=== PATIENT | male | born 1935 | race African-American/Black ===

== ENCOUNTER 2018-02-26 11:21 | Inpatient (IN) | payer MEDICARE ==
[2018-02-26 12:21] LABS: #Lymphocytes 0.6 thou/uL (1.20-3.40); #Monocytes 0.4 thou/uL (0.11-0.59); %Eosinophils 0.6 % (0.0-10.0); %Lymphocytes 9.4 % (21.0-51.0); %Monocytes 5.9 % (0.0-10.0); %Neutrophils 84.1 % (42.0-75.0); Hemoglobin 7.6 g/dL (14.0-18.0); Mean Corpuscular HGB CONC 32.7 g/dL (32.0-36.0); Mean Corpuscular Hemoglobin 27.8 pg (27.0-31.0); Mean Corpuscular Volume 85.2 fl (80.0-94.0); Mean Platelet Volume 6.7 fL (7.4-10.4); Platelet Count 286 thou/uL (130-400); RBC Distribution Width 14.2 % (11.5-14.5); Red Blood Cell (RBC) Count 2.72 mill/uL (4.70-6.10); White Blood Cell (WBC) Count 5.9 thou/uL (4.8-10.8)
[2018-02-26 12:44] LABS: ALT (SGPT) Less than 7 U/L (8-55); AST (SGOT) 11 U/L (5-34); Albumin 4.5 g/dL (3.4-4.8); Alkaline Phosphatase 110 U/L (40-150); Anion Gap 17 mmol/L (10-20); BUN (Urea Nitrogen) 53 mg/dL (8.4-25.7); Bilirubin, Total 0.5 mg/dL (0.2-1.2); CK (CPK) 120 U/L (30-200); Calc. Creatinine Clearance 0 mL/min (70-130); Calcium 9.6 mg/dL (7.8-10.44); Carbon Dioxide 13 mmol/L (23-31); Chloride 108 mmol/L (98-107); Estimated GFR-MDRD 11; Globulin 3.8 g/dL (2.4-3.5); Glucose 96 mg/dL (83-110); Potassium 4.3 mmol/L (3.5-5.1); Protein, Total 8.3 g/dL (5.8-8.1); Sodium 134 mmol/L (136-145)
[2018-02-26 12:49] LABS: CKMB 1.8 ng/mL (0-6.6); Troponin I 0.044 ng/mL (< 0.028)
--- NOTE | 2018-02-26 13:20 | RAD ---
CHEST 1 VIEW: Date: 02/26/18 HISTORY: Weight loss. COMPARISON: Radiograph from 2015. 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 This is not significantly worsened. Heart size upper limits of normal. No focal air space consolidation, pneumothorax, or effusion. Sever e degenerative changes of the shoulder joints with remodeling of the glenohumeral joints. Undersurfac e remodeling of the acromion indicating rotator cuff arthropathy. IMPRESSION: Similar exam since 2015. 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 POS: [facility]
[2018-02-26 15:52] LABS: Troponin I 0.047 ng/mL (< 0.028)
[2018-02-26 18:34] LABS: Troponin I 0.044 ng/mL (< 0.028)
[2018-02-26] MEDS ORDERED: hydrALAZINE 25 MG TAB PO SCH (21:45)
[2018-02-26] MEDS ORDERED: NIFEdipine XL 90 MG TAB PO SCH (21:45)
[2018-02-26] MEDS ORDERED: Sodium Chloride 0.9% 1,000 ML IV SCH (22:45)
[2018-02-27] MEDS: hydrALAZINE 20 MG/ML VIAL SLOW IVP PRN (01:11)
[2018-02-27] MEDS ORDERED: hydrALAZINE 20 MG/ML VIAL SLOW IVP SCH (04:15)
[2018-02-27 04:44] LABS: Creatinine, Urine 77.13 mg/dL (63-166)
[2018-02-27 04:56] LABS: Bilirubin Negative (Negative); Blood, Urine Negative (Negative); Clarity CLEAR (Clear); Glucose, Urine (Dipstick) Negative (Negative); Leukocyte Trace (Negative); Nitrite Negative (Negative); Protein, Urine (Dipstick) 100 mg/dL (Neg-Trace); Specific Gravity, Urine 1.009 (1.002-1.036); pH, Urine 7.5 (5.0-9.0)
[2018-02-27 04:57] LABS: Anion Gap 15 mmol/L (10-20); BUN (Urea Nitrogen) 55 mg/dL (8.4-25.7); Calc. Creatinine Clearance 8 mL/min (70-130); Calcium 9.1 mg/dL (7.8-10.44); Carbon Dioxide 13 mmol/L (23-31); Chloride 111 mmol/L (98-107); Estimated GFR-MDRD 12; Glucose 77 mg/dL (83-110); Iron 38 ug/dL (65-175); Iron Binding Capacity, Total 176 mcg/dL (261-462); Potassium 4.7 mmol/L (3.5-5.1); Sodium 134 mmol/L (136-145)
[2018-02-27 04:58] LABS: Bacteria/HPF None Seen HPF (None Seen); Hyaline Casts/LPF 0-3 HYALINE CAST LPF (0-3 Hyaline); RBC/HPF 0-3 HPF (0-3); Squamous Epithelial None Seen HPF (0-3)
[2018-02-27 05:18] LABS: #Eosinphils 0.2 thou/uL (0.0-0.7); #Lymphocytes 0.7 thou/uL (1.20-3.40); #Monocytes 0.5 thou/uL (0.11-0.59); #Neutrophils 3.6 thou/uL (1.40-6.50); %Basophils 0.3 % (0.0-1.0); %Eosinophils 3.2 % (0.0-10.0); %Lymphocytes 14.2 % (21.0-51.0); %Monocytes 9.7 % (0.0-10.0); %Neutrophils 72.7 % (42.0-75.0); Hemoglobin 7.1 g/dL (14.0-18.0); Mean Corpuscular HGB CONC 33.2 g/dL (32.0-36.0); Mean Corpuscular Hemoglobin 28.3 pg (27.0-31.0); Mean Corpuscular Volume 85.2 fl (80.0-94.0); Mean Platelet Volume 7.5 fL (7.4-10.4); Platelet Count 195 thou/uL (130-400); RBC Distribution Width 14.1 % (11.5-14.5); Red Blood Cell (RBC) Count 2.52 mill/uL (4.70-6.10)
[2018-02-27] MEDS ORDERED: GoLYTELY 4,000 ml Bottle PO SCH (06:00)
--- NOTE | 2018-02-27 06:25 | HP ---
DATE OF ADMISSION: 02/26/2018 REASON FOR ADMISSION AND CHIEF COMPLAINT: Severe anorexia and weight loss and anemia and worsening r enal failure. HISTORY OF PRESENT ILLNESS: Mr. Restrepo is an 82-year-old -Gabonese male with past medical h istory of chronic kidney disease stage 4 as well as hypertension, was seen in the office for followup . The patient was found to be very anemic and also has lost lot of weight in the last 6 months. The patient was seen 3 months ago with weight loss, anemia, and renal failure. The patient was referred to GI and Nephrology, but the patient did not go at that time and he did not wanted any workup done. 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 The patient lost more weight in the last 3 months again. He states he does not have an appetite and he has been losing weight steadily for the last 6 months. He lost significant a mount of weight around 30-40 pounds. The patient feeling weak and dizzy, but no chest pain, no short ness of breath, no headache, no nausea or vomiting. So, the patient was advised to come to the [facility]. In the ER, the patient was evaluated and found to be anemic with renal failure and severe weigh t loss. He is being admitted for further evaluation and management. PAST MEDICAL HISTORY: 1. Hypertension. 2. Chronic anemia. 3. Chronic kidney disease, stage 4. 4. History of gastric ulcers. 5. History of rectal bleeding. 6. History of colon diverticular. 7. History of degenerative joint disease. PAST SURGICAL HISTORY: Nothing significant. CURRENT MEDICATIONS: The patient is on nifedipine 90 mg daily, hydralazine 100 mg t.i.d., clonidine 0.2 mg b.i.d. ALLERGIES: No known drug allergies. FAMILY HISTORY: Nothing of interest. SOCIAL HISTORY: The patient lives alone. No history of smoking. No history of alcohol intake. REVIEW OF SYSTEMS: Cardiovascular: No chest pain, no shortness of breath. Respiratory: No cough, fever. Gastrointestinal: Has anorexia and weight loss. No abdominal pain. Central nervous system: No headache. Feels dizzy. PHYSICAL EXAMINATION: GENERAL: The patient is alert, awake, oriented x3. VITAL SIGNS: Temperature 98, pulse 57, respirations 20, blood pressure 160/80. HEENT: Head is normocephalic, atraumatic. Pupils equal and reactive to light. Nasopharynx is pale and dry. Hard and soft palate, no lesions seen. SKIN: Skin turgor decreased. NECK: Supple. No JVD. LUNGS: Breath sounds diminished bilaterally. Percussion not dull bilaterally. No rales, no rhonchi . HEART: S1, S2 regular. ABDOMEN: Soft, no distention, no tenderness. Normal bowel sounds present. RECTAL: Deferred. CENTRAL NERVOUS SYSTEM: The patient is alert, awake, oriented x3. Motor system power 4/5 in all ext remities. Deep tendon reflexes 2+ bilaterally. Plantars downgoing. Sensory intact. LABORATORY DATA AND X-RAY FINDINGS: CBC shows WBC 5.9, hemoglobin 7.6, hematocrit 22, platelets 286. Metabolic panel: Sodium 134, potassium 4.8, chloride 108, CO2 of 13, BUN 53, creatinine 6, glucose 96, CK-MB 1.8, troponin I 0.044. BNP was 433. EKG shows normal sinus rhythm, no acute ST-T changes seen. Chest x-ray: Lungs clear. There is marked ectasia versus aneurysm dilatation of the transve rse and proximal descending thoracic aorta. ASSESSMENT: 1. Severe anemia, symptomatic. 2. Anorexia and weight loss. 3. Severe protein calorie malnutrition. 4. Chronic kidney disease, stage 4. 5. Hypertension, uncontrolled. 6. Cachexia and weakness. PLAN: 1. Vital signs q.4 hours. 2. Activity: As tolerated. 3. Allergies: NKDA. 4. IV fluids: Normal saline at 75 mL per hour. 5. Continue home medication. 6. Diet: Renal, 7. CBC and base met in the morning. 8. GI consult. 9. Nephrology consult.
[2018-02-27] MEDS: Sodium Chloride 0.9% 1,000 ML IV SCH ×2 (06:29→22:43)
--- NOTE | 2018-02-27 07:58 | CON ---
DATE OF CONSULTATION: 02/27/2018 REFERRING PHYSICIAN: Dr. Yovany Gonzalez. REASON FOR CONSULTATION: Progressive weight loss, anemia. HISTORY OF PRESENT ILLNESS: Mr. Varun Restrepo is a very fragile looking, elderly black male who w as hospitalized today with anemia and also history of progressive weight loss. The patient was seen in the room along with the patient's family. The patient is weighing 200 pounds to probably 2 years ago. The patient has been eating very poorly over the last year also. He has any losing weight prog ressively. The patient actually appears very cachectic. There is no muscle mass. He appears very c omfortable. Except for the anorexia and poor oral intake, he had really no specific GI symptoms. Th e patient denies abdominal pain, nausea, or vomiting. No history of any dysphagia or odynophagia. B owel movements are fairly regular. No history of hematochezia, no melena. Does complain of poor david etite and weight loss. He also complains of lack of energy, fatigue, and tiredness lately. He also been feeling dizzy off and on. The symptoms are very nonspecific. The patient has no history of chr onic cough, hemoptysis. No history of fever or night sweats. The patient has really no localizing s ymptoms except for the anorexia and progressive weight loss. He came to the ER and was found to have anemia. Although he is anemic, he has no history of hematochezia or melena. No hematuria, bleeding from the gums, or nose bleeds. The patient tells me he had prostate cancer in 2002 or [address] Rodriguez and underwent radiation therapy. He has subsequent followup with urologist. Th e patient has no urinary symptoms at present time. The patient has no family history of any cancer. He has no relevant history. ALLERGIES: None. SOCIAL HISTORY: Patient does not smoke or drink alcohol. MEDICAL ILLNESSES: 1. Hypertension. 2. 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 3. Prostate cancer in 2001, 2002, and has had chemoradiation therapy. SURGERIES: None. FAMILY HISTORY: Unremarkable. MEDICATIONS: List includes Clonidine, nifedipine, hydralazine. REVIEW OF SYSTEMS: A 10-point system review. Constitutional: History of poor appetite, weight loss , poor strength, and poor energy. Central Nervous System: No history of TIA. No syncope, no seizur e disorder. No chronic headache. Respiratory System: No history of chronic cough, hemoptysis, dysp riley. Cardiovascular System: No chest pain, no palpitation, no exertional dyspnea, orthopnea, or PND . Gastrointestinal: No abdominal pain, no nausea, no vomiting, no dysphagia or odynophagia. Bowel movements are fairly regular. Genitourinary: No dysuria, hematuria, or frequency of urination. Mus culoskeletal/Endocrine/hematological/neuro/psychiatry: Not relevant. PHYSICAL EXAMINATION: GENERAL: Patient appears very thin built and basically no muscle mass and he appears very cachectic. He is awake, alert, and communicative. He is in no distress. VITAL SIGNS: Temperature 97.75 and pulse is 62, blood pressure 182/95. HEENT: Conjunctivae clear. NECK: Supple. No adenitis or thyromegaly noted. CARDIOVASCULAR SYSTEM: First and second heart sounds normal. LUNGS: Clear to auscultation. ABDOMEN: Soft to palpate. Abdomen is nondistended. Abdomen is nontender. There is no organomegaly or masses. Bowel sounds normal. EXTREMITIES: No edema. LABORATORY DATA: CBC shows WBC 5900, hemoglobin 7.6, hematocrit 23.3, MCV 85.2, platelet count is 38 6,000, polymorphs 84, lymphocytes 9, monocytes 5. Serum chemistries are actually normal except for t he BUN of 53, creatinine 6.01, sodium 134, potassium 4.3, chloride 108, bicarbonate 13, glucose is 96 , calcium 9.6, bilirubin 0.5. AST 11, ALT 7, alkaline phosphatase 110. CK 120, MB 1.8, troponin 0.0 44, total protein is 8.3, albumin 4.3, globulin 3.8. CLINICAL IMPRESSION: 1. An 82-year-old -[place] male with anorexia and progressive weight loss over the last year or so. He is also anemic. The anemia is back to normocytic. He has no localizing symptoms. The p atient really has no other abdominal pain, nausea, vomiting, hematochezia, or melena. I am really no t sure of the history and GI pathology also for weight loss or some other pathology. 2. Hypertension. 3. Chronic kidney disease. 4. History of prostate cancer, status post radiation therapy. PLAN: 1. Follow up H&H. 2. Transfuse p.r.n. 3. Potassium is normal at 4.3. He is acidotic from the renal failure. I had a long talk with the p atchauncey and patient's family. I explained to her about EGD needed for anorexia, weight loss, and anemi a. Also explained the bowel prep in detail. He agrees to have that as necessary and will plan for t he bowel prep tomorrow morning and hopefully the EGD can be done by tomorrow afternoon. If fails to show any signs of pathology, we will consider CAT scan. However, the CAT scan can be done with contr ast because of chronic renal failure.
[2018-02-27] MEDS: NIFEdipine XL 90 MG TAB PO SCH (08:20)
[2018-02-27] MEDS: hydrALAZINE 25 MG TAB PO SCH ×3 (08:21→22:42)
--- NOTE | 2018-02-27 08:59 | CON ---
DATE OF CONSULTATION: 02/27/2018. HISTORY OF PRESENT ILLNESS: Mr. Restrepo is an 82-year-old black male who was admitted for severe an orexia with weight loss. He was also found to be in acute kidney injury on top of his chronic renal failure. Of interest, this patient was seen by the Renal Service about 3 years ago for his chronic r enal failure. He has intrinsic renal problem on the initial evaluation. We are here to further evaluate the acute kidney injury. REVIEW OF SYSTEMS: Decreased appetite, decreased energy level. Positive for abdominal pain. Occasi onal nausea, no hematochezia, no melena, no hematemesis, no headache, no shortness of breath, no ches t pain. Appetite is decreased. No fever or chills, no syncopal episode, no sore throat, no diplopia , occasional joint pains. Past medical history of chronic renal failure secondary to a presumed hype rtensive nephropathy. Chronic anemia. History of gastric ulcers. PAST MEDICAL HISTORY: 1. 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 2. Chronic anemia. 3. History of gastric ulcers. 4. History of rectal bleeding 5. History of the colonic diverticulosis. 6. DJD. 7. Also a history of noncompliance. 8. Hyperlipidemia. PAST SURGICAL HISTORY: Status post upper and lower GI endoscopy. SOCIAL HISTORY: The patient lives in [place], , five children, lives alone. No history of smo akilah, no alcohol intake. Education; 2nd grade. 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 No IV drug ab use. Active life. Sedentary lifestyle. FAMILY HISTORY: No family history of ESRD. ALLERGIES: CODEINE. TRAUMA: None. IMMUNIZATIONS: Up to date. HOSPITALIZATIONS: Please see past medical history. PHYSICAL EXAMINATION: VITAL SIGNS: Blood pressure 160/90, heart rate 72, respiratory rate 16, temperature 97.9, pulse oxim etry 99%. GENERAL: Noted to be awake, alert, supine, comfortable, not in overt distress. SKIN: Decreased turgor. HEENT: He has pale conjunctivae, anicteric sclerae. NECK: No neck mass, no carotid bruits, no JVD. CHEST: No deformities. LUNGS: Clear breath sounds, no wheezing, no crackles. HEART: Normal sinus rhythm. No murmur, no gallops or rubs. ABDOMEN: Globular, soft, nontender, no masses. EXTREMITIES: No edema, no deformities. MEDICATIONS: 02/27/2018 - Hydralazine 100 mg p.o. t.i.d., Nifedipine 90 mg daily. LABORATORY: 02/27/2018 - White count 5, hemoglobin 7.1. 02/26/2018 - Hemoglobin was 7.6. 02/27/2018 - Sodium 134, potassium 4.7, chloride 111, carbon dioxide 13, BUN 55, creatinine 5.48, GFR 12 mL per minute, glucose 77, calcium 9.1, iron 38, ferritin 291. 02/26/2018 - BNP 433. Troponin I 0.044. 02/26/2018 - BUN 53, creatinine 6.01. 10/17/2014 - Creatinine 4.17. Renal ultrasound is currently pending. 02/26/2018 - Chest x-ray shows no evidence of congestive heart failure. There is marked ectasia vers us aneurysmal dilatation the ____ proximal descending thoracic aorta - relatively unchanged when comp ared back in 2014. ASSESSMENT AND PLAN: 1. Acute kidney injury - consider superimposed prerenal azotemia with a history of decreased p.o. in take and weight loss. Agree with continuing normal saline at 75 mL per hour. Slight improvement in the renal function with initiation of IV hydration. 2. Anemia. Gastroenterology consult has been done. For a planned colonoscopy. P.r.n. blood transf usion. 3. Hypertension. Resume all blood pressure meds including clonidine 0.1 mg tab b.i.d. I will start this patient on Epogen and iron supplementation. I agree with current management. We will do a renal ultrasound today.
[2018-02-27] MEDS ORDERED: Epoetin (ESRD) 20,000 UNITS/ML SC SCH (09:00)
[2018-02-27] MEDS ORDERED: Ondansetron HCl/PF 4 MG/2 ML Vial IVP SCH (10:00)
[2018-02-27] MEDS: cloNIDine 0.1 MG TAB PO SCH ×2 (10:36→22:42)
--- NOTE | 2018-02-27 11:21 | ULT ---
ULTRASOUND RENAL BILATERAL STANDARD: Date: 02/27/18 HISTORY: Renal failure. COMPARISON: Renal ultrasound dated 10/16/14. TECHNIQUE: Real-time Moore scale and color evaluation of the kidneys performed. FINDINGS: The kidneys are small and markedly echogenic. Right kidney measures 6.7 x 5.6 x 5.5 cm. Left kidney m easures 6.0 x 2.9 x 3.8 cm. Pre-void urinary bladder volume is 232 mL. There are numerous small renal cysts. IMPRESSION: Echogenic kidney consistent with medical renal disease. No evidence for obstructive uropathy. POS: [facility]
[2018-02-27] MEDS: Ferrous Sulfate 325 MG TAB PO SCH (18:48)
[2018-02-28 05:48] LABS: #Eosinphils 0.1 thou/uL (0.0-0.7); #Lymphocytes 0.9 thou/uL (1.20-3.40); #Monocytes 0.4 thou/uL (0.11-0.59); #Neutrophils 3.1 thou/uL (1.40-6.50); %Basophils 0.8 % (0.0-1.0); %Lymphocytes 19.9 % (21.0-51.0); %Neutrophils 69.3 % (42.0-75.0); Hemoglobin 6.6 g/dL (14.0-18.0); Mean Corpuscular HGB CONC 33.9 g/dL (32.0-36.0); Mean Corpuscular Hemoglobin 28.6 pg (27.0-31.0); Mean Corpuscular Volume 84.2 fl (80.0-94.0); Mean Platelet Volume 6.4 fL (7.4-10.4); Platelet Count 212 thou/uL (130-400); RBC Distribution Width 14.1 % (11.5-14.5); Red Blood Cell (RBC) Count 2.32 mill/uL (4.70-6.10); White Blood Cell (WBC) Count 4.5 thou/uL (4.8-10.8)
[2018-02-28 06:08] LABS: Anion Gap 14 mmol/L (10-20); BUN (Urea Nitrogen) 46 mg/dL (8.4-25.7); Calc. Creatinine Clearance 10 mL/min (70-130); Calcium 8.8 mg/dL (7.8-10.44); Carbon Dioxide 17 mmol/L (23-31); Chloride 109 mmol/L (98-107); Estimated GFR-MDRD 14; Glucose 60 mg/dL (83-110); Potassium 4.4 mmol/L (3.5-5.1); Sodium 136 mmol/L (136-145)
--- NOTE | 2018-02-28 07:53 | CON ---
DATE OF CONSULTATION: 02/27/2018 INDICATION FOR CONSULTATION: This is an 82-year-old patient who was admitted with failure to thrive, increasing weight loss and continued to have fatigue and weakness, anorexia, anemia with chronic kaila al insufficiency and malnutrition. He had abnormal cardiac enzymes which are indeterminate. He also had some PACs as well as some bradycardia noted on the EKG with a heart rate actually of 2.1 second pause. Heart rate was in mainly in the 50s until he had a slight pause. Otherwise he has had no sig nificant arrhythmias noted. Does have evidence of left ventricular hypertrophy. He had an echocardi ogram today which showed a normal ejection fraction with LVH. HISTORY OF PRESENT ILLNESS: This is a very unfortunate 82-year-old gentleman who has been living [facility]. Family members nearby has been noted to have recently over the last year or so increasing weight loss. His daughter says that he has lost almost 100 pounds over a year ago, but in the last 2 month s, he has lost about 30 pounds. He says that he does not feel very well. He does have some anorexia and he does not understand why he is losing weight or if there is any particular specific abdominal complaints. He has no pain. He has had no previous cardiac history. He denied any chest pain or sh ortness of breath. He does have a history of hypertension and hypercholesterolemia. Otherwise, he f rom a cardiac standpoint appears to be relatively stable. Cardiac enzymes were indeterminate at 0.04 4. BNP is only 433 which is slightly elevated as the echocardiogram does show evidence of mild diast olic dysfunction. 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 He has a history of endoscopy in the past. He has had rectal bleeding in the past and dege nerative joint disease. He has been noncompliant with followups. SOCIAL HISTORY: He has no alcohol or tobacco abuse. He has family members who are alive and well. FAMILY HISTORY: Unremarkable for any early heart disease. ALLERGIES: Possible allergy to CODEINE. MEDICATIONS: Include clonidine, Plavix, Procrit, Feosol, hydralazine and Procardia-XL 90 mg a day. REVIEW OF SYSTEMS: A 12-point review of system is unremarkable except for the weight loss. He denie d any other major symptoms except for fatigue. PHYSICAL EXAMINATION: GENERAL: Reveals an elderly, thin gentleman. VITAL SIGNS: Blood pressure 140/80, heart rate is 84 and regular with occasional ectopy. He is afeb rile, respiratory rate 16. HEENT: Shows head to be normocephalic and atraumatic. Carotid pulses are present. There were no br uits. There is no JVD. The thyroid did not appear to be enlarged. Oral mucosa was pink and moist. CHEST: Clear to auscultation without any rales, rhonchi or wheezing. CARDIOVASCULAR: Reveals a regular rate and rhythm with occasional ectopy. He has no significant mur murs, heaves, thrills, bruits or rubs. ABDOMEN: Flat, soft, and nontender. Positive bowel sounds are present. I did not palpate any gross masses. EXTREMITIES: Showed no clubbing, cyanosis or edema. Pedal pulses are very difficult to palpate. Po pliteal pulses are present. Femoral pulses are present. He has bilateral femoral bruits. NEUROLOGIC: He just appears to be fatigued, but there were no gross focal motor deficits noted. IMAGING DATA AND LABORATORY DATA: EKG shows a normal sinus rhythm with left ventricular hypertrophy with nonspecific T-wave changes. He has had a CT which showed aneurysmal dilatation of thoracic aort a from the transverse and proximal areas and cardiac enzymes are noted above. Laboratory data shows creatinine of 5.48, potassium 4.7. His hemoglobin was 7.1 with hematocrit of 21.5. Echocardiogram a s noted above shows left ventricular hypertrophy. Ejection fraction 55%-60%. He does have some thic kening of the aortic valve leaflets which may be some either old vegetations or mild calcifications o r either some gross on the aortic valve, but there were no obstructive lesions. He has mild tricuspi d valve regurgitation, mild mitral valve regurgitation and also has evidence of diastolic dysfunction with evidence of left ventricular hypertrophy also. IMPRESSION: 1. Abnormal cardiac enzymes, most likely due to his chronic renal insufficiency and perhaps demand i schemia related to the anemia. He has no acute changes at this time. He does have evidence of left ventricular hypertrophy, but no acute ST segment elevations to indicate ischemia at this time. Due t o his anemia, he is not a candidate for further workup at this time. 2. Anemia which is being followed by the GI. He will most likely undergo an endoscopy. 3. Significant weight loss over 100 pounds in a year according to the family. This also need to be evaluated. He may have some underlying malignancy. 4. Hypertension, which is under good control at this time. 5. Chronic kidney disease. She has been seen already by the senior information developer. At this time, we are happy to continue to follow the patient with you. His present medications I wozayra rocha agree with, his BNP is only slightly elevated and he appears to have diastolic dysfunction, but th is would not be unusual for this with hypertension and diastolic dysfunction with elevated BNP of 433 . Cardiac enzymes show indeterminate and most likely associated with his anemia. We would be more t moreno happy to follow with the patient with you, but no further cardiac workup is indicated at this marine e.
[2018-02-28] MEDS ORDERED: Promethazine HCl 25 MG/ML VIAL IM PRN (07:54)
[2018-02-28] MEDS ORDERED: Promethazine HCl 25 MG/ML VIAL SLOW IVP PRN (07:54)
[2018-02-28] MEDS ORDERED: Ondansetron HCl/PF 4 MG/2 ML Vial IVP PRN (07:54)
--- NOTE | 2018-02-28 09:49 | OP ---
DATE OF PROCEDURE: 02/28/2018 SURGEON: Chayito Alvarez M.D. OPERATIVE PROCEDURE: Colonoscopy. PREOPERATIVE DIAGNOSES: Severe weight loss, anemia. POSTOPERATIVE DIAGNOSES: 1. Radiation proctitis. 2. Hemorrhoids. 3. Sigmoid diverticular disease. 4. Very tortuous and redundant colon. PROCEDURE IN DETAIL: The patient was placed on his left lateral position and was given sedation by A nesthesia Department. A rectal exam was done before the scope was advanced into the rectum. No lesi on felt on rectal exam. A Pentax video colonoscope was introduced into the rectum and advanced all t he way to the cecum. The patient had a very tortuous and redundant colon. The mucosa appears normal throughout the colon. The appendiceal orifice and ileocecal valve, cecum, no problems. The ascendi ng colon, hepatic flexure, transverse colon, ascending colon, no pathology seen. The sigmoid colon s howed scattered diverticula. Rectum shows telangiectasia and also what appears to be radiation proct itis. Rectum also showed hemorrhoids.
--- NOTE | 2018-02-28 09:53 | OP ---
DATE OF PROCEDURE: 02/28/2018 SURGEON: Chayito Alvarez M.D. OPERATIVE PROCEDURE: Esophagogastroduodenoscopy PREOPERATIVE DIAGNOSES: An 82-year-old male with severe weight loss, anemia. The p atient is undergoing esophagogastroduodenoscopy. POSTOPERATIVE DIAGNOSES: 1. Small hiatus hernia. 2. Antral gastric erosion. 3. Normal duodenum. PROCEDURE IN DETAIL: The patient was placed on his left lateral position and was given sedation by A nesthesia Department. A Pentax video gastroscope under direct vision was passed down the oropharynx, past the GE junction, into the stomach and subsequently into descending duodenum. The esophageal mu cosa appeared normal. The GE junction, no pathology seen. He had a small hiatus hernia. Retroflexi on failed to show any pathology in the fundus or cardia. The gastric body, no pathology seen. The gastric antrum shows mild gastritis and some antral erosion. The incisura angularis, no pathology se en. The duodenal bulb, descending duodenum, no pathology seen. The stomach was decompressed and the scope removed. RECOMMENDATIONS: 1. Follow up H&H. 2. Transfuse p.r.n. 3. Obtain a CAT scan of the abdomen and pelvis with contrast if possible. Because of his kidney dys function a contrast study may be very difficult.
[2018-02-28] MEDS ORDERED: PROPOFOL 200 MG/20 ML VIAL ONE (11:12)
[2018-02-28] MEDS: NIFEdipine XL 90 MG TAB PO SCH (11:46)
[2018-02-28] MEDS: Ferrous Sulfate 325 MG TAB PO SCH ×2 (11:47→16:37)
[2018-02-28] MEDS: hydrALAZINE 25 MG TAB PO SCH ×3 (11:47→19:45)
[2018-02-28] MEDS: Sodium Chloride 0.9% 1,000 ML IV SCH ×2 (11:47→21:34)
[2018-02-28] MEDS: cloNIDine 0.1 MG TAB PO SCH ×2 (11:47→19:45)
--- NOTE | 2018-02-28 13:51 | PDOC.CTH ---
<Petra Quiñones - Last Filed: 02/28/18 13:49> Cardiology Progress Note - Subjective The pt seen and examined. No overnight events. No cardiac complaints. - Objective Vital Signs Temp Pulse Resp BP BP Pulse Ox 02/28/18 11:47 65 02/28/18 11:46 65 171/87 H 02/28/18 09:50 98.2 F 65 18 100 02/28/18 09:45 98.2 F 65 100 H 171/87 H 100 02/28/18 04:00 98.9 F 67 18 150/72 H 93 L Admit Weight 117 lb 5 oz Weight 125 lb 4.8 oz 02/27/18 02/28/18 03/01/18 06:59 06:59 06:59 Intake Total 761 1140 Output Total 470 500 Balance 291 640 - Physical Examination General/Neuro: alert & oriented x3 Neck: no JVD present Lungs: CTA Heart: RRR Abdomen: soft Extremities: other: (No edema) - Telemetry Telemetry Rhythm: SR 60s - Labs Result Diagrams: 02/28/18 05:03 02/28/18 05:03 Troponin/CKMB CK-MB (CK-2) 1.8 ng/mL (0-6.6) 02/26/18 12:03 Troponin I 0.044 ng/mL (< 0.028) H 02/26/18 17:47 - Assessment/Plan 1. Acute on CKD - managed by research chief engineer 2. Anemia - EGD showed negative; on Epoetin 3. HTN - start Coreg 6.25mg BID 4. Hx of gastric ulcer - EGD showed negative; MAR reviewed * Echo on 02/27/18 showed EF 55-60%, grade I diastolic HF, trace MR, mild AR, mild TR, and mild [place]. Review of Systems - Review of Systems Constitutional: reports: no symptoms reported EENTM: reports: no symptoms reported Respiratory: reports: no symptoms reported Cardiac (ROS): reports: no symptoms reported ABD/GI: reports: no symptoms reported : reports: no symptoms reported Musculoskeletal: reports: no symptoms reported Skin: reports: no symptoms reported <Sully Alvarez - Last Filed: 02/28/18 20:23> Cardiology Progress Note - Objective Vital Signs Temp Pulse Pulse Resp BP BP BP 06/13/18 19:45 182/99 H 02/28/18 19:00 98.6 F 72 18 171/91 H 02/28/18 16:40 182/99 H 02/28/18 15:30 97.9 F 53 L 53 L 17 159/92 H 159/92 H 02/28/18 15:18 65 182/99 H 02/28/18 15:15 97.8 F 58 L 18 182/99 H 02/28/18 12:00 59 L 18 152/86 H 02/28/18 11:47 65 02/28/18 11:46 65 171/87 H 02/28/18 09:50 98.2 F 65 18 02/28/18 09:45 98.2 F 65 16 171/87 H Pulse Ox 02/28/18 19:45 02/28/18 19:00 02/28/18 16:40 02/28/18 15:30 98 02/28/18 15:18 02/28/18 15:15 02/28/18 12:00 02/28/18 11:47 02/28/18 11:46 02/28/18 09:50 100 02/28/18 09:45 100 Admit Weight 117 lb 5 oz Weight 125 lb 4.8 oz 02/27/18 02/28/18 03/01/18 06:59 06:59 06:59 Intake Total 761 1140 1005 Output Total 470 500 550 Balance 291 640 455 - Labs Result Diagrams: 02/28/18 05:03 02/28/18 05:03 Troponin/CKMB CK-MB (CK-2) 1.8 ng/mL (0-6.6) 02/26/18 12:03 Troponin I 0.044 ng/mL (< 0.028) H 02/26/18 17:47 - Assessment/Plan Pt. seen and eval. I agree with the A/P by the SKIING INSTRUCTOR. The cardiac status remains stable. I will sign off. if any changes from a cardiac standpoint, please consult me again.
[2018-02-28] MEDS: Carvedilol 6.25 MG TAB PO SCH (16:40)
[2018-02-28] MEDS: hydrALAZINE 20 MG/ML VIAL SLOW IVP PRN (20:31)
[2018-02-28] MEDS ORDERED: Labetalol HCl 100 MG/20 ML VIAL SLOW IVP SCH (22:30)
[2018-03-01 05:46] LABS: #Eosinphils 0.1 thou/uL (0.0-0.7); #Lymphocytes 0.7 thou/uL (1.20-3.40); #Monocytes 0.5 thou/uL (0.11-0.59); #Neutrophils 4.1 thou/uL (1.40-6.50); %Basophils 0.2 % (0.0-1.0); %Eosinophils 1.5 % (0.0-10.0); %Lymphocytes 12.7 % (21.0-51.0); %Monocytes 9.1 % (0.0-10.0); %Neutrophils 76.5 % (42.0-75.0); Hemoglobin 9.5 g/dL (14.0-18.0); Mean Corpuscular HGB CONC 33.7 g/dL (32.0-36.0); Mean Corpuscular Hemoglobin 28.5 pg (27.0-31.0); Mean Corpuscular Volume 84.4 fl (80.0-94.0); Mean Platelet Volume 6.4 fL (7.4-10.4); Platelet Count 205 thou/uL (130-400); RBC Distribution Width 14.4 % (11.5-14.5); Red Blood Cell (RBC) Count 3.35 mill/uL (4.70-6.10); White Blood Cell (WBC) Count 5.4 thou/uL (4.8-10.8)
[2018-03-01 06:05] LABS: Anion Gap 13 mmol/L (10-20); BUN (Urea Nitrogen) 42 mg/dL (8.4-25.7); Calc. Creatinine Clearance 11 mL/min (70-130); Carbon Dioxide 18 mmol/L (23-31); Chloride 110 mmol/L (98-107); Estimated GFR-MDRD 16; Glucose 73 mg/dL (83-110); Potassium 4.4 mmol/L (3.5-5.1); Sodium 137 mmol/L (136-145)
[2018-03-01 06:17] LABS: Free T4 (Free Thyroxine) 1.19 ng/dL (0.70-1.48); Thyroid Stimulating Hormone 1.3906 uIU/mL (0.35-4.94)
[2018-03-01] MEDS: hydrALAZINE 25 MG TAB PO SCH ×3 (08:40→19:27)
[2018-03-01] MEDS: Ferrous Sulfate 325 MG TAB PO SCH ×2 (08:41→17:18)
[2018-03-01] MEDS: cloNIDine 0.1 MG TAB PO SCH ×2 (08:41→19:27)
[2018-03-01] MEDS: NIFEdipine XL 90 MG TAB PO SCH (08:41)
[2018-03-01] MEDS: Carvedilol 6.25 MG TAB PO SCH ×2 (08:41→17:18)
[2018-03-01] MEDS: Sodium Chloride 0.9% 1,000 ML IV SCH ×2 (10:40→19:28)
--- NOTE | 2018-03-01 10:46 | PRG ---
DATE OF SERVICE: 03/01/2018 SUBJECTIVE: Mr. Restrepo is an 82-year-old black male who was seen by the Renal Service for his acut e kidney injury. He had a superimposed hemodynamically mediated renal dysfunction. He was given IV volume repletion. He also underwent upper and lower GI endoscopy. Findings showed radiation proctit is, hemorrhoids, and an antral gastric erosion. This morning, he is feeling better. His creatinine is much improved. No complaints of chest pain, shortness of breath. OBJECTIVE: VITAL SIGNS: Blood pressure 155/81, heart rate 63, respiratory rate 12, temperature 98.7, pulse ox 9 8%. GENERAL: Noted to be awake, alert, comfortable, not in distress. SKIN: Adequate turgor. HEENT: He has pinkish conjunctivae, anicteric sclerae. NECK: No neck mass, no carotid bruits, no JVD. CHEST: No deformities. LUNGS: Clear breath sounds, no wheezing, no crackles. HEART: Normal sinus rhythm. No murmur, no gallops or rubs. ABDOMEN: Globular, soft, nontender. No masses. EXTREMITIES: No edema, no deformities. MEDICATIONS: 03/01/2018 - Reviewed. LABORATORY DATA: 03/01/2018 - White count 5.4, hemoglobin 9.5. Sodium 137, potassium 4.4, chloride 110, carbon dioxide 18, BUN 42, creatinine 4.43, glucose 73, calcium 9. ASSESSMENT AND PLAN: 1. Acute kidney injury on top of his chronic renal failure - superimposed prerenal azotemia, improvi ng creatinine. Creatinine of 4.4, nearing baseline. He is currently, at stage IV chronic renal fail ure, no indication for any dialytic intervention. Continue gentle volume repletion. 2. Anemia - upper and lower GI endoscopy has been done. GI is following. P.r.n. blood transfusion. He has also been started on Epogen. 3. Hypertension, stable. Continue current blood pressure meds. 4. Chronic renal failure - most likely from hypertensive nephropathy. I did advise this patient to follow up with the Renal Clinic.
[2018-03-01] MEDS: Mirtazapine 15 MG TAB PO SCH (19:27)
[2018-03-02 05:35] LABS: #Eosinphils 0.1 thou/uL (0.0-0.7); #Lymphocytes 0.8 thou/uL (1.20-3.40); #Monocytes 0.6 thou/uL (0.11-0.59); #Neutrophils 3.8 thou/uL (1.40-6.50); %Basophils 0.2 % (0.0-1.0); %Eosinophils 2.7 % (0.0-10.0); %Lymphocytes 15.2 % (21.0-51.0); %Monocytes 10.3 % (0.0-10.0); %Neutrophils 71.6 % (42.0-75.0); Hemoglobin 9.3 g/dL (14.0-18.0); Mean Corpuscular HGB CONC 33.7 g/dL (32.0-36.0); Mean Corpuscular Hemoglobin 28.8 pg (27.0-31.0); Mean Corpuscular Volume 85.3 fl (80.0-94.0); Mean Platelet Volume 6.6 fL (7.4-10.4); Platelet Count 213 thou/uL (130-400); RBC Distribution Width 14.3 % (11.5-14.5); Red Blood Cell (RBC) Count 3.24 mill/uL (4.70-6.10); White Blood Cell (WBC) Count 5.3 thou/uL (4.8-10.8)
[2018-03-02 05:49] LABS: Anion Gap 10 mmol/L (10-20); BUN (Urea Nitrogen) 42 mg/dL (8.4-25.7); Calc. Creatinine Clearance 12 mL/min (70-130); Calcium 8.7 mg/dL (7.8-10.44); Carbon Dioxide 18 mmol/L (23-31); Chloride 112 mmol/L (98-107); Estimated GFR-MDRD 17; Potassium 4.9 mmol/L (3.5-5.1); Sodium 135 mmol/L (136-145)
[2018-03-02 05:53] LABS: Glucose 57 mg/dL (83-110)
[2018-03-02] MEDS: Carvedilol 6.25 MG TAB PO SCH ×2 (08:44→16:51)
[2018-03-02] MEDS: Ferrous Sulfate 325 MG TAB PO SCH ×2 (08:44→16:50)
[2018-03-02] MEDS: cloNIDine 0.1 MG TAB PO SCH ×2 (08:44→19:51)
[2018-03-02] MEDS: hydrALAZINE 25 MG TAB PO SCH ×3 (08:44→19:52)
[2018-03-02] MEDS: NIFEdipine XL 90 MG TAB PO SCH (08:45)
--- NOTE | 2018-03-02 09:41 | CT ---
CT ABDOMEN AND PELVIS WITHOUT CONTRAST: Date: 03/02/18 Multiple axial tomograms obtained through the abdomen and pelvis without IV enhancement. INDICATIONS: Anorexia. Weight loss. No comparison study. FINDINGS: Images through the lung bases reveal small bilateral pleural effusions and bibasilar lung atelectasis . Liver, spleen, and pancreas appear unremarkable for an unenhanced study. Kidneys are small. There is a 2.0 cm low density lesion in the left renal cortex, probably a cyst. An other 1.0 cm lesion in the left renal cortex more anteriorly also probably represents a small cyst. T here is a 1.5 cm low density lesion inferior right kidney, probable cyst. There is no hydronephrosis or urinary calculus identified. Small bowel loops are normal caliber. Colon unremarkable. There is diverticulosis of the left colon a nd sigmoid. Urinary bladder is mildly distended. Prostate is mildly prominent. Aorta is densely calci fied, tortuous, and ectatic. There is diffuse haziness of the mesenteric fat and diffuse haziness of the subcutaneous adipose. Thi s is nonspecific. Findings could represent anasarca. There may be a small amount of free fluid in the deep pelvis on the right. Degenerative changes seen in the spine. Prominent hypertrophic spurring at the L3-4 level compresses thecal sac and results in moderate to severe central canal stenosis. IMPRESSION: 1. Bilateral pleural effusions and bibasilar atelectasis. 2. Diffuse haziness of the intra-abdominal fat and subcutaneous fat. Question anasarca. 3. Diverticulosis without definite evidence of diverticulitis. 4. Small amount of free fluid in the deep pelvis. 5. Renal cystic lesions. 6. Calcified ectatic aorta. 7. Central canal stenosis at L3-4. POS: [facility]
[2018-03-02 10:39] VITALS: BMI 18.6
[2018-03-02] MEDS: Sodium Chloride 0.9% 1,000 ML IV SCH ×2 (12:42→21:20)
[2018-03-02] MEDS: Mirtazapine 15 MG TAB PO SCH (19:52)
[2018-03-03] MEDS: hydrALAZINE 20 MG/ML VIAL SLOW IVP PRN (04:51)
[2018-03-03 05:26] LABS: #Eosinphils 0.1 thou/uL (0.0-0.7); #Lymphocytes 0.8 thou/uL (1.20-3.40); #Monocytes 0.7 thou/uL (0.11-0.59); #Neutrophils 4.5 thou/uL (1.40-6.50); %Basophils 0.8 % (0.0-1.0); %Eosinophils 2.3 % (0.0-10.0); %Lymphocytes 13.3 % (21.0-51.0); %Monocytes 10.6 % (0.0-10.0); %Neutrophils 73.1 % (42.0-75.0); Hemoglobin 9.4 g/dL (14.0-18.0); Mean Corpuscular Hemoglobin 29.2 pg (27.0-31.0); Mean Corpuscular Volume 85.7 fl (80.0-94.0); Mean Platelet Volume 6.5 fL (7.4-10.4); Platelet Count 210 thou/uL (130-400); RBC Distribution Width 14.7 % (11.5-14.5); Red Blood Cell (RBC) Count 3.21 mill/uL (4.70-6.10); White Blood Cell (WBC) Count 6.2 thou/uL (4.8-10.8)
[2018-03-03 05:35] LABS: Anion Gap 13 mmol/L (10-20); BUN (Urea Nitrogen) 46 mg/dL (8.4-25.7); Calc. Creatinine Clearance 13 mL/min (70-130); Carbon Dioxide 16 mmol/L (23-31); Chloride 111 mmol/L (98-107); Estimated GFR-MDRD 17; Glucose 61 mg/dL (83-110); Potassium 5.2 mmol/L (3.5-5.1); Sodium 135 mmol/L (136-145)
[2018-03-03] MEDS: cloNIDine 0.1 MG TAB PO SCH (07:51)
[2018-03-03] MEDS: Carvedilol 6.25 MG TAB PO SCH ×2 (07:51→16:46)
[2018-03-03] MEDS: Ferrous Sulfate 325 MG TAB PO SCH (07:51)
[2018-03-03] MEDS: NIFEdipine XL 90 MG TAB PO SCH (07:52)
[2018-03-03] MEDS: hydrALAZINE 25 MG TAB PO SCH ×3 (07:52→22:07)
[2018-03-03] MEDS ORDERED: cloNIDine 0.1 MG TAB PO SCH (11:15)
[2018-03-03] MEDS ORDERED: Ondansetron ODT 4 MG TAB PO PRN ×2 (11:39→15:30)
--- NOTE | 2018-03-03 12:22 | PRG ---
DATE OF SERVICE: 03/03/2018 SUBJECTIVE: Mr. Restrepo is an 82-year-old black male who was seen for his acute kidney injury on to p of his chronic renal failure. He was given IV hydration with slow improvement of the renal functio n. Most recent creatinine is 4.1, which is near baseline. Still complains of some abdominal discomf ort. Please note, he underwent a CT scan of the abdomen and pelvis yesterday without contrast and fi nding of bilateral pleural effusion with atelectasis, diffuse haziness of the intraabdominal fat and subcutaneous fat? of anasarca, diverticulosis without diverticulitis, renal cystic lesions and incide ntal finding of central canal stenosis. Please note that the patient also underwent an upper and low er GI endoscopy with Dr. Alvarez. Finding of an antral gastric erosion was noted. No new complaints today. OBJECTIVE: VITAL SIGNS: Blood pressure 168/99, heart rate 64, respiratory rate 18, temperature 98.2, pulse ox 9 6%. GENERAL: Awake, alert, supine, comfortable, not in overt distress. SKIN: Adequate turgor. HEENT: He has slightly pale conjunctivae, anicteric sclerae. NECK: No neck mass, no carotid bruits, no JVD. CHEST: No deformities. LUNGS: Clear breath sounds. No wheezing, no crackles. HEART: Normal sinus rhythm. No murmur, no gallops, no rubs. ABDOMEN: Globular, soft, nontender, no masses. EXTREMITIES: No edema, no deformities. MEDICATIONS: Of 03/03/2018 reviewed. LABORATORY DATA: Of 03/03/2018, white count 6.2, hemoglobin 9.4. Sodium 135, potassium 5.2, chlorid e 111, carbon dioxide 16, BUN 46, creatinine 4.05, glucose 61, calcium 9.0. ASSESSMENT AND PLAN: 1. Acute kidney injury on top of his chronic renal failure, superimposed prerenal azotemia, much imp roved creatinine. Creatinine was noted to have peaked at a value of 6.01. Currently at 4.05. His G FR 17 mL per minute. Continue supportive care. There is no indication for any dialytic intervention . 2. Mild anemia - p.r.n. blood transfusion, on Epogen and iron. 3. Metabolic acidosis. We will start sodium bicarbonate 650 mg 1 tab b.i.d. Recheck base met and CBC in a..
[2018-03-03] MEDS ORDERED: Furosemide 20 MG TAB PO SCH (16:45)
[2018-03-03] MEDS: Mirtazapine 15 MG TAB PO SCH (22:07)
[2018-03-03] MEDS: Sodium Bicarbonate Tab 325 MG TAB PO SCH (22:07)
[2018-03-03] MEDS: cloNIDine 0.2 MG TAB PO SCH (22:08)
[2018-03-04 05:38] LABS: #Eosinphils 0.2 thou/uL (0.0-0.7); #Lymphocytes 0.9 thou/uL (1.20-3.40); #Monocytes 0.6 thou/uL (0.11-0.59); #Neutrophils 3.9 thou/uL (1.40-6.50); %Basophils 0.4 % (0.0-1.0); %Eosinophils 3.1 % (0.0-10.0); %Lymphocytes 15.4 % (21.0-51.0); %Monocytes 10.7 % (0.0-10.0); %Neutrophils 70.3 % (42.0-75.0); Hemoglobin 8.7 g/dL (14.0-18.0); Mean Corpuscular HGB CONC 34.7 g/dL (32.0-36.0); Mean Corpuscular Hemoglobin 30.3 pg (27.0-31.0); Mean Corpuscular Volume 87.1 fl (80.0-94.0); Mean Platelet Volume 6.8 fL (7.4-10.4); Platelet Count 195 thou/uL (130-400); RBC Distribution Width 14.9 % (11.5-14.5); Red Blood Cell (RBC) Count 2.88 mill/uL (4.70-6.10); White Blood Cell (WBC) Count 5.5 thou/uL (4.8-10.8)
[2018-03-04 05:51] LABS: Anion Gap 12 mmol/L (10-20); BUN (Urea Nitrogen) 49 mg/dL (8.4-25.7); Calc. Creatinine Clearance 12 mL/min (70-130); Calcium 8.7 mg/dL (7.8-10.44); Carbon Dioxide 16 mmol/L (23-31); Chloride 111 mmol/L (98-107); Estimated GFR-MDRD 16; Glucose 87 mg/dL (83-110); Potassium 5.4 mmol/L (3.5-5.1); Sodium 134 mmol/L (136-145)
[2018-03-04] MEDS: Sodium Bicarbonate Tab 325 MG TAB PO SCH (08:17)
[2018-03-04] MEDS: Carvedilol 6.25 MG TAB PO SCH (08:17)
[2018-03-04] MEDS: hydrALAZINE 25 MG TAB PO SCH ×2 (08:17→15:42)
[2018-03-04] MEDS: NIFEdipine XL 90 MG TAB PO SCH (08:17)
[2018-03-04] MEDS: cloNIDine 0.2 MG TAB PO SCH (08:17)
--- NOTE | 2018-03-04 10:36 | PRG ---
DATE OF SERVICE: 03/04/2018 RENAL MEDICINE SUBJECTIVE: Mr. Restrepo is an 82-year-old black male being followed up by the Renal Service for his acute kidney injury on top of his chronic renal failure. He had a superimposed prerenal azotemia. This is now improved to baseline renal function. He has underlying chronic renal failure from hypert ensive nephropathy. He was complaining of abdominal pain yesterday, but this morning feeling better. He is tolerating his p.o. intake. No new complaints. No chest pain or shortness of breath. PHYSICAL EXAMINATION: VITAL SIGNS: Blood pressure 148/85, heart rate 61, respiratory rate 18, temperature 98.2, and pulse ox 96%. GENERAL: Noted to be awake, supine, comfortable, not in distress. SKIN: Adequate turgor. HEENT: He has slightly pale conjunctivae, anicteric sclerae. NECK: No neck mass, no carotid bruits, no JVD. CHEST: No deformities. LUNGS: Clear breath sounds. No wheezing, no crackles. HEART: Normal sinus rhythm. No murmur, no gallops or rubs. ABDOMEN: Globular, soft, nontender, no masses. EXTREMITIES: No edema, no deformities. MEDICATIONS: Of 03/04/2018 was reviewed. LABORATORY DATA: Of 03/04/2018, white count 5.5, hemoglobin 8.7, hematocrit 25.1. Sodium 134, potas sium 5.4, chloride 111, carbon dioxide 16, BUN 49, creatinine 4.29, calcium 8.7. ASSESSMENT AND PLAN: 1. Acute kidney injury on top of his chronic renal failure - superimposed prerenal azotemia. Renal function is near baseline. Continue supportive care. He is currently at stage IV chronic renal fail ure. 2. Chronic renal failure secondary to hypertensive nephropathy. There is no indication for any acut e dialytic intervention. Eventually, this patient will need dialysis. 3. Hypertension, stable. Continue current blood pressure. 4. Abdominal pain, much improved. 5. Anemia p.r.n. blood transfusion. Continue weekly Epogen and iron supplementation. We will check base met and CBC in a.m.
[2018-03-04 15:41] VITALS: TEMP 97.6
[2018-03-04 15:46] VITALS: BP 143/86
--- NOTE | 2018-03-05 15:32 | DIS ---
DATE OF ADMISSION: 02/26/2018 DATE OF DISCHARGE: 03/04/2018 ADMITTING DIAGNOSES: 1. Severe anemia, symptomatic. 2. Anorexia and weight loss. 3. Severe protein-calorie malnutrition. 4. Hypertension, uncontrolled. 5. Cachexia and weakness. FINAL DIAGNOSES: 1. Severe anemia, symptomatic, improved. 2. Anorexia and weight loss, improving. 3. Severe protein-calorie malnutrition. 4. Chronic kidney disease stage 4. 5. Acute kidney injury, improved. 6. Hypertension, uncontrolled, improved. 7. Cachexia and weakness. BRIEF SUMMARY OF HOSPITAL COURSE: Mr. Restrepo is an 82-year-old - Citizen [place] male, admitted because of severe anemia. The patient had a hemoglobin of 6. He also has chronic kidney disease with acute kidney injury. He was started on IV fluids as well as transfused with PRBC.. The patient still have anorexia and not able to eat much. A consultation was done with GI. The patient was seen by Dr. Alvarez. He says that EGD and colonoscopy which were done, EGD was unremarkable and colonoscopy revealed radiation proctitis and hemorrhoids, otherwise unremarkable. The patient was seen by Dr. Nick for acute kidney injury and suggested IV fluid therapy for acute kidney injury. The patient was started on Remeron for anorexia, after which he started to eat better. His anemia was corrected with transfusions. Hemoglobin remained stable around 8.7 to 9. His renal function also improved. His creatinine came down from 6 to 4.2. His BUN also came down. The patient able to ambulate without any problem. His blood pressure was initially uncontrolled. Medications were increased and the new medications were added including Coreg after which blood pressure was better controlled. In view of improvement, the patient is being discharged home. At the time of discharge, he was stable. Vital signs stable. Lungs clear. Heart sounds regular. Abdomen soft, nontender. Bowel sounds present. DISCHARGE MEDICATIONS: Include clonidine 0.2 b.i.d., nifedipine XL 90 mg daily , hydralazine 100 mg t.i.d., Coreg 12.5 b.i.d., Remeron 15 mg at bedtime, sodium bicarbonate 650 b.i.d. FOLLOWUP: The patient will come for followup in 2 weeks. [facility]
== END 2018-03-04 15:53 | disposition home or self-care (01) | DRG 682 ==
LOC: ERS 11:21 → 2NO 16:36
PROVIDERS: ADMIT Internal Medicine; ATTEND Internal Medicine
PROC: 0DJD8ZZ Inspection of Lower Intestinal Tract, Via Natural or Artificial Opening Endoscopic (ICD-10-PCS; principal; 2018-02-28)
PROC: 0DJ08ZZ Inspection of Upper Intestinal Tract, Via Natural or Artificial Opening Endoscopic (ICD-10-PCS; 2018-02-28)
DX: I12.9 Hypertensive chronic kidney disease with stage 1 through stage 4 chronic kidney disease, or unspecified chronic kidney disease (principal); E43 Unspecified severe protein-calorie malnutrition; R64 Cachexia; N17.9 Acute kidney failure, unspecified; Z68.1 Body mass index [BMI] 19.9 or less, adult; N18.4 Chronic kidney disease, stage 4 (severe); I24.8 Other forms of acute ischemic heart disease; Q43.8 Other specified congenital malformations of intestine; E87.2 Acidosis; D63.1 Anemia in chronic kidney disease; K62.7 Radiation proctitis; K64.9 Unspecified hemorrhoids; K57.30 Diverticulosis of large intestine without perforation or abscess without bleeding; K25.9 Gastric ulcer, unspecified as acute or chronic, without hemorrhage or perforation; K44.9 Diaphragmatic hernia without obstruction or gangrene; M19.90 Unspecified osteoarthritis, unspecified site; E78.5 Hyperlipidemia, unspecified; Z91.19 Patient's noncompliance with other medical treatment and regimen; Z85.46 Personal history of malignant neoplasm of prostate; Z87.11 Personal history of peptic ulcer disease; Z79.02 Long term (current) use of antithrombotics/antiplatelets; Z79.899 Other long term (current) drug therapy
CPT/HCPCS: 36415; 36416; 36430; 71045; 74176; 76770; 80048; 80053; 81003; 81015; 82274; 82550; 82553; 82570; 82728; 83540; 83550; 83880; 84300; 84439; 84443; 84484; 85025; 86850; 86900; 86901; 87040; 93005; 93306; 94760; A4216; G8978-GP-CL; G8979-GP-CK; J0360; J2405; J2704; P9016; Q0162; Q4081

== ENCOUNTER 2018-03-20 17:31 | Inpatient (IN) | payer MEDICARE ==
[2018-03-20 18:14] LABS: #Eosinphils 0.2 thou/uL (0.0-0.7); #Lymphocytes 1.3 thou/uL (1.20-3.40); #Monocytes 0.5 thou/uL (0.11-0.59); #Neutrophils 4.4 thou/uL (1.40-6.50); %Basophils 0.2 % (0.0-1.0); %Eosinophils 3.6 % (0.0-10.0); %Lymphocytes 19.4 % (21.0-51.0); %Monocytes 8.2 % (0.0-10.0); %Neutrophils 68.5 % (42.0-75.0); Hemoglobin 9.7 g/dL (14.0-18.0); Mean Corpuscular HGB CONC 33.1 g/dL (32.0-36.0); Mean Corpuscular Hemoglobin 28.6 pg (27.0-31.0); Mean Corpuscular Volume 86.5 fL (78.0-98.0); Mean Platelet Volume 6.5 fL (7.4-10.4); Platelet Count 238 thou/uL (130-400); RBC Distribution Width 14.5 % (11.5-14.5); Red Blood Cell (RBC) Count 3.39 mill/uL (4.70-6.10); White Blood Cell (WBC) Count 6.4 thou/uL (4.8-10.8)
[2018-03-20 18:34] LABS: ALT (SGPT) 10 U/L (8-55); AST (SGOT) 17 U/L (5-34); Albumin 3.9 g/dL (3.4-4.8); Alkaline Phosphatase 87 U/L (40-150); Anion Gap 15 mmol/L (10-20); BUN (Urea Nitrogen) 61 mg/dL (8.4-25.7); Bilirubin, Total 0.4 mg/dL (0.2-1.2); Calc. Creatinine Clearance 0 mL/min (70-130); Calcium 9.4 mg/dL (7.8-10.44); Carbon Dioxide 15 mmol/L (23-31); Chloride 109 mmol/L (98-107); Estimated GFR-MDRD 12; Globulin 3.5 g/dL (2.4-3.5); Glucose 72 mg/dL (83-110); Potassium 6.2 mmol/L (3.5-5.1); Protein, Total 7.4 g/dL (5.8-8.1); Sodium 133 mmol/L (136-145)
[2018-03-20 19:16] LABS: CK (CPK) 64 U/L (30-200); Lipase 25 U/L (8-78)
[2018-03-20 19:26] LABS: CKMB 1.5 ng/mL (0-6.6); Troponin I 0.058 ng/mL (< 0.028)
[2018-03-20 19:30] LABS: INR-International Normal Ratio 1.1; PTT 36.4 SEC (22.9-36.1); Prothrombin Time 14.1 SEC (12.0-14.7)
[2018-03-20] MEDS ORDERED: Clopidogrel Bisulfate 75 MG TAB ONE (19:45)
[2018-03-20] MEDS ORDERED: Calcium Chloride 1 GM/10 ML Abboject SYRINGE ONE (19:46)
[2018-03-20] MEDS ORDERED: Dextrose 50% Abboject 50 ML SYRINGE ONE (19:46)
[2018-03-20] MEDS ORDERED: Sodium Bicarb 50 MEQ/50 ML Abboject 8.4% SYRINGE ONE (19:46)
[2018-03-20] MEDS ORDERED: Insulin Regular 300 UNITS/3 ML VIAL ONE (19:46)
--- NOTE | 2018-03-20 19:49 | RAD ---
CHEST ONE VIEW: 03/20/18 HISTORY: Dyspnea. Elevated potassium. COMPARISON: Chest radiograph 02/26/18. FINDINGS: There is marked tortuosity of the aorta. Small effusion. Heart size is markedly enlarged. IMPRESSION: 1. 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 2. Severe degenerative change with remodeling of both glenohumeral joints. POS: [facility]
[2018-03-20] MEDS ORDERED: Ondansetron HCl/PF 4 MG/2 ML Vial IVP PRN (21:20)
[2018-03-20] MEDS ORDERED: Ondansetron ODT 4 MG TAB SL PRN (21:20)
[2018-03-20] MEDS ORDERED: Sodium Chloride 0.9% 1,000 ML IV SCH (21:20)
[2018-03-20 21:43] LABS: Troponin I 0.051 ng/mL (< 0.028)
[2018-03-20 22:06] VITALS: BMI 19.1
[2018-03-21 01:11] LABS: Troponin I 0.047 ng/mL (< 0.028)
[2018-03-21] MEDS ORDERED: cloNIDine 0.2 MG TAB PO SCH (05:30)
[2018-03-21] MEDS: Carvedilol 6.25 MG TAB PO SCH ×2 (08:17→17:15)
[2018-03-21] MEDS: hydrALAZINE 25 MG TAB PO SCH ×3 (08:17→20:36)
[2018-03-21] MEDS: NIFEdipine XL 90 MG TAB PO SCH (08:17)
[2018-03-21] MEDS: Sodium Bicarbonate Tab 325 MG TAB PO SCH ×2 (08:17→20:36)
[2018-03-21] MEDS: cloNIDine 0.2 MG TAB PO SCH ×2 (08:18→20:37)
[2018-03-21] MEDS ORDERED: Epoetin (ESRD) 20,000 UNITS/ML SC SCH (10:15)
--- NOTE | 2018-03-21 10:39 | PRG ---
DATE OF SERVICE: 03/21/2018 SUBJECTIVE: Mr. Restrepo is an 82-year-old black male with known history of chronic renal failure, r eadmitted due to an acute kidney injury on top of hyperkalemia. He has underlying chronic renal fail ure. He was seen recently by the Renal Service at the hospital. His discharge creatinine at that time was noted to be at 4.29 and currently on admission it is now 5. 52. He also had a potassium of 6.2. He was given Kayexalate, insulin, calcium gluconate at the ER. This morning, he is feeling better. He denies any chest pain or shortness of breath. He is current ly staying with his son and [id number] in [place]. We are following this patient for his acute kidney injury on top of his chronic renal failure as well as the hyperkalemia. PHYSICAL EXAMINATION: VITAL SIGNS: Blood pressure 182/111 - before meds, heart rate 68, respiratory rate 16, pulse ox 99%. GENERAL: Noted to be awake, supine, comfortable, not in distress. SKIN: Adequate turgor. HEENT: Pale conjunctivae, anicteric sclerae. NECK: No neck mass, no carotid bruits, no JVD. CHEST: No deformities. LUNGS: Clear breath sounds, no wheezing, no crackles. HEART: Normal sinus rhythm. No murmur, no gallops or rubs. ABDOMEN: Globular, soft, nontender, no masses. EXTREMITIES: No edema, no deformities. MEDICATIONS: 03/21/2018 - Reviewed. LABORATORY DATA: 03/20/2018 - White count 6.4, hemoglobin 9.7, sodium 133, potassium 6.2, chloride 1 09, carbon dioxide 15, BUN 61, creatinine 5.52, glucose 72, calcium 9.4, albumin is 3.9. ASSESSMENT AND PLAN: 1. Acute kidney injury - consider again a hemodynamically mediated renal dysfunction. The patient r eceived a 500 mL normal saline bolus yesterday and continue normal saline at 75 mL per hour. There i s no indication for any dialytic intervention at the present time. 2. Mild hyperkalemia. Recheck potassium today - results are pending. 3. Anemia - resume weekly Epogen 7500 units every week. 4. Mild hyperkalemia, rechecking another base met today. Anticipate this will be much improved. We will also recheck another base met and CBC in a.m. Agree with current management.
[2018-03-21 10:52] LABS: Anion Gap 13 mmol/L (10-20); BUN (Urea Nitrogen) 58 mg/dL (8.4-25.7); Calc. Creatinine Clearance 9 mL/min (70-130); Calcium 9.5 mg/dL (7.8-10.44); Carbon Dioxide 15 mmol/L (23-31); Chloride 112 mmol/L (98-107); Estimated GFR-MDRD 13; Glucose 76 mg/dL (83-110); Potassium 5.1 mmol/L (3.5-5.1); Sodium 135 mmol/L (136-145)
[2018-03-21] MEDS: Sodium Chloride 0.9% 1,000 ML IV SCH (14:15)
[2018-03-21] MEDS ORDERED: Minoxidil 2.5 MG TAB PO SCH (17:15)
[2018-03-21] MEDS ORDERED: hydrALAZINE 25 MG TAB PO SCH (17:30)
--- NOTE | 2018-03-21 18:28 | HP ---
DATE OF ADMISSION: 03/20/2018 CHIEF COMPLAINT: Hyperkalemia. HISTORY OF PRESENT ILLNESS: Mr. Restrepo is an 82-year-old male with past medical h istory of chronic kidney disease and hypertension, who was recently in the hospital with acute kidney injury, anorexia and weight loss. I had a labwork done in the office a few days ago, which showed s markus potassium of 6.6, so the patient was advised to come to the hospital in view of severe hyperkale adi. The patient does not have any chest pain or shortness of breath. He has been eating well. No headache, no dizziness. In the ER, the patient was evaluated. He still has hyperkalemia of 6.2 and worsening of renal failure. The patient lost weight before, but since discharge from the hospital, bernice salamanca gained around 12 pounds. In the ER, the patient was evaluated and was given Kayexalate and given I V fluid bolus as well, also received insulin and D50 and calcium chloride for hyperkalemia. PAST MEDICAL HISTORY: 1. Hypertension. 2. Hyperlipidemia. 3. Protein calorie malnutrition. 4. Chronic kidney disease, stage 4. PAST SURGICAL HISTORY: Nothing significant. CURRENT MEDICATIONS: The patient is on nifedipine XL 90 mg daily, hydralazine 300 mg t.i.d., Coreg 1 2.5 b.i.d., clonidine 2.2 b.i.d., Remeron 15 mg at bedtime, and sodium bicarbonate 650 b.i.d. ALLERGIES: No known drug allergies. FAMILY HISTORY: Nothing of interest. SOCIAL HISTORY: The patient lives with family. No history of smoking. No history of drug abuse. REVIEW OF SYSTEMS: Cardiovascular: No chest pain. No shortness of breath. Respiratory: No fever or cough. Gastrointestinal: No nausea, vomiting, or abdominal pain. Genitourinary: No dysuria or hematuria. Central nervous system: No headache, no dizziness. PHYSICAL EXAMINATION: GENERAL: The patient is alert, awake, oriented x3. VITAL SIGNS: Temperature 98, pulse 60, respiration 20, blood pressure 180/111. HEENT: Head is normocephalic and atraumatic. Pupils equal and reactive to light. Nasopharynx is pa le and dry. Hard and soft palate, no lesions. SKIN: Skin turgor decreased. NECK: Supple. No JVD. LUNGS: Bilateral air entry present, no rales, no rhonchi. CARDIAC: S1, S2 regular. ABDOMEN: Soft, no distention, no tenderness. Normal bowel sounds. . NEUROLOGIC: No focal deficits. LABORATORY AND X-RAY FINDINGS: CBC shows WBC 6.4, hemoglobin 9.7, hematocrit 29, platelets 238. Met abolic panel: Sodium 133, potassium 6.2, chloride 109, CO2 of 15, BUN 61, creatinine 5.5, glucose 72 , CK-MB 1.2, troponin 0.058. BNP 336. Prothrombin time 14, INR 1.1, but chest x-ray shows no acute changes. EKG shows normal sinus rhythm, no acute ST-T wave changes seen. ASSESSMENT: 1. Hyperkalemia. 2. Acute kidney injury. 3. Hypertension, uncontrolled. 4. Chronic kidney disease, stage 4. 5. Protein calorie malnutrition, moderate. PLAN: 1. Vital signs. 2. Activity: As tolerated. 3. Allergies: NKDA. 4. IV fluids normal saline at 70 mL per hour. 5. Intake and output. 6. Diet: Renal. 7. Continue home medications. 8. Kayexalate. 9. CBC and base met in the morning.
[2018-03-21] MEDS: Mirtazapine 15 MG TAB PO SCH (20:36)
[2018-03-22] MEDS: Sodium Chloride 0.9% 1,000 ML IV SCH ×2 (04:35→16:25)
[2018-03-22 04:54] LABS: #Eosinphils 0.2 thou/uL (0.0-0.7); #Monocytes 0.5 thou/uL (0.11-0.59); #Neutrophils 3.7 thou/uL (1.40-6.50); %Basophils 0.7 % (0.0-1.0); %Eosinophils 4.1 % (0.0-10.0); %Lymphocytes 17.8 % (21.0-51.0); %Monocytes 9.2 % (0.0-10.0); %Neutrophils 68.3 % (42.0-75.0); Hemoglobin 8.5 g/dL (14.0-18.0); Mean Corpuscular HGB CONC 32.8 g/dL (32.0-36.0); Mean Corpuscular Hemoglobin 28.2 pg (27.0-31.0); Mean Platelet Volume 7.3 fL (7.4-10.4); Platelet Count 177 thou/uL (130-400); RBC Distribution Width 14.6 % (11.5-14.5); Red Blood Cell (RBC) Count 3.02 mill/uL (4.70-6.10); White Blood Cell (WBC) Count 5.4 thou/uL (4.8-10.8)
[2018-03-22 05:09] LABS: Anion Gap 13 mmol/L (10-20); BUN (Urea Nitrogen) 58 mg/dL (8.4-25.7); Calc. Creatinine Clearance 10 mL/min (70-130); Calcium 8.6 mg/dL (7.8-10.44); Carbon Dioxide 16 mmol/L (23-31); Chloride 114 mmol/L (98-107); Estimated GFR-MDRD 13; Glucose 67 mg/dL (83-110); Potassium 4.8 mmol/L (3.5-5.1); Sodium 138 mmol/L (136-145)
[2018-03-22] MEDS: Sodium Bicarbonate Tab 325 MG TAB PO SCH ×2 (08:38→20:06)
[2018-03-22] MEDS: Minoxidil 2.5 MG TAB PO SCH (08:38)
[2018-03-22] MEDS: Carvedilol 6.25 MG TAB PO SCH ×2 (08:38→16:24)
[2018-03-22] MEDS: hydrALAZINE 25 MG TAB PO SCH ×3 (08:38→20:06)
[2018-03-22] MEDS: NIFEdipine XL 90 MG TAB PO SCH (08:38)
[2018-03-22] MEDS: cloNIDine 0.2 MG TAB PO SCH ×2 (08:39→20:08)
--- NOTE | 2018-03-22 08:53 | PRG ---
DATE OF SERVICE: 03/22/2018 SERVICE: Renal Medicine. SUBJECTIVE: Mr. Restrepo is an 82-year-old black male followed up for his chronic renal failure from hypertensive nephropathy. His potassium was initially noted to be elevated, but this is much improv ed. His renal function slowly improved also. He voices no new complaints. He is asking when he is going to go home. Patient denies any chest gaby n or shortness of breath. PHYSICAL EXAMINATION: VITAL SIGNS: Blood pressure is 191/102, heart rate 56, respiratory rate 16, temperature 97.9, pulse ox 98%. GENERAL: Noted to be awake, alert, comfortable, supine, not in distress. SKIN: Adequate turgor. HEENT: Slightly pale conjunctivae, anicteric sclerae. NECK: No neck mass, no carotid bruits, no JVD. CHEST: No deformities. LUNGS: Clear breath sounds, no wheezing, no crackles. HEART: Normal sinus rhythm. No murmur, no gallops or rubs. ABDOMEN: Globular, soft, nontender. No masses. Positive for bowel sounds. Negative for epigastric bruits. EXTREMITIES: No edema, no deformities. NEUROLOGIC: Awake, oriented to 3 spheres. No tremors. No asterixis. No ataxia. MEDICATIONS: Of 03/22/2018 was reviewed. LABORATORY DATA: Of 03/22/2018, white count 5.4, hemoglobin 8.5. Sodium 130, potassium 4.8, chlorid e 114, carbon dioxide 16, BUN 58, creatinine 5.06, GFR 13 mL per minute, glucose 67, calcium 8.6. ASSESSMENT AND PLAN: 1. Acute kidney injury on top of his chronic renal failure - superimposed prerenal azotemia. Creati nine slightly improved from an initial creatinine on admission 5.52 to most recent creatinine of 5.06 . We will attempt to bring back to his baseline creatinine. No indication for any dialytic interven tion. As a matter of fact, I discussed dialysis with this patient, he is not open to dialysis at the present time. 2. Anemia, currently on weekly Epogen. 3. Hypertension. Minoxidil 2.5 mg tab once a day was started. 4. Continue current management. Recheck base met and CBC in a.m.
--- NOTE | 2018-03-22 11:26 | PQF ---
CLINICAL DOCUMENTATION IMPROVEMENT CLARIFICATION FORM: ICD-10 Updated PLEASE DO AN ADDENDUM TO THE PROGRESS NOTE WITH ANY DOCUMENTATION UPDATES OR ADDITIONS AND CARRY THROUGH TO DC SUMMARY. THANK YOU. DATE: 03/22 ATTN: DR. Vj VILLAGRAN Please exercise your independent, professional judgment in responding to the clarification form. Clinical indicators are provided on the bottom of this form for your review. Please check appropriate box(s): [ y ] Primary/Essential Hypertension: [ y] Emergency [ ] Urgency [ ] Crisis [ ] Other diagnosis [ ] Unable to determine For continuity of documentation, please document condition throughout progress notes and discharge summary. Thank You. CLINICAL INDICATORS - SIGNS / SYMPTOMS / LABS SUSTAINED ELEVATED BP 03/20 - PRESENT: 163/95, 180/104, 182/111, 155/88, 177/97, 189/105, 166/96, 179/90, 191/102 PHYSICIAN H&P 03/20: PAST MEDICAL HX: HTN, CKD 4 ASSESSMENT: 3) HYPERTENSION, UNCONTROLLED; 4) CKD STAGE 4 PHYSICIAN PN 03/21: 3) CKD STAGE 4; 4) HTN, UNCONTROLLED NEPHROLOGY PN 03/22: SUBJECTIVE: FOLLOWUP FOR CHRONIC RENAL FAILURE FROM HYPERTENSIVE NEPHROPATHY; ASSESSMENT: 3) HYPERTENSION, MINOXIDIL 2.5 MG ONCE A DAY WAS STARTED RISK FACTORS: HYPERTENSION (UNCONTROLLED) LORA ON CKD STAGE 4 HYPERTENSIVE NEPHROPATHY TREATMENTS: NEPHROLOGY CONSULT TELEMETRY MONITORING HOME BP MEDS W/ ADDITION OF MINOXIDIL THANK YOU! Shae (This form is maintained as a part of the permanent medical record) 2014 [employer]. All Rights Reserved Sahe Thomson RN, BSN [email or web address] Office: [phone] [facility]
[2018-03-22] MEDS: Mirtazapine 15 MG TAB PO SCH (20:08)
[2018-03-23 04:43] LABS: #Basophils 0.1 thou/uL (0.0-0.2); #Eosinphils 0.2 thou/uL (0.0-0.7); #Lymphocytes 0.9 thou/uL (1.20-3.40); #Monocytes 0.5 thou/uL (0.11-0.59); #Neutrophils 3.3 thou/uL (1.40-6.50); %Basophils 1.5 % (0.0-1.0); %Eosinophils 3.8 % (0.0-10.0); %Lymphocytes 17.5 % (21.0-51.0); %Monocytes 10.9 % (0.0-10.0); %Neutrophils 66.2 % (42.0-75.0); Hemoglobin 8.6 g/dL (14.0-18.0); Mean Corpuscular HGB CONC 32.6 g/dL (32.0-36.0); Mean Corpuscular Hemoglobin 28.6 pg (27.0-31.0); Mean Corpuscular Volume 87.9 fL (78.0-98.0); Mean Platelet Volume 6.8 fL (7.4-10.4); Platelet Count 194 thou/uL (130-400); RBC Distribution Width 14.6 % (11.5-14.5); Red Blood Cell (RBC) Count 2.99 mill/uL (4.70-6.10)
[2018-03-23 04:51] LABS: Anion Gap 14 mmol/L (10-20); BUN (Urea Nitrogen) 52 mg/dL (8.4-25.7); Calc. Creatinine Clearance 10 mL/min (70-130); Calcium 8.6 mg/dL (7.8-10.44); Carbon Dioxide 14 mmol/L (23-31); Chloride 115 mmol/L (98-107); Estimated GFR-MDRD 14; Glucose 67 mg/dL (83-110); Potassium 4.8 mmol/L (3.5-5.1); Sodium 138 mmol/L (136-145)
[2018-03-23] MEDS: Sodium Chloride 0.9% 1,000 ML IV SCH (06:02)
[2018-03-23] MEDS: NIFEdipine XL 90 MG TAB PO SCH (09:07)
[2018-03-23] MEDS: hydrALAZINE 25 MG TAB PO SCH ×2 (09:07→14:03)
[2018-03-23] MEDS: Sodium Bicarbonate Tab 325 MG TAB PO SCH (09:07)
[2018-03-23] MEDS: cloNIDine 0.2 MG TAB PO SCH (09:08)
[2018-03-23] MEDS: Carvedilol 6.25 MG TAB PO SCH (09:08)
[2018-03-23] MEDS: Minoxidil 2.5 MG TAB PO SCH (09:09)
--- NOTE | 2018-03-23 09:39 | PRG ---
DATE OF SERVICE: 03/23/2018 RENAL MEDICINE SUBJECTIVE: Mr. Restrepo is an 82-year-old black male who was seen by Renal Service for his acute ki dney injury on top of his chronic renal failure. He is feeling better this morning. He denies any n ew complaints. Yesterday, I added minoxidil 2.5 mg tab daily for his blood pressure. I did again explain to the patient and his daughter that eventually he need dialysis. He is still wa nting to think about it. PHYSICAL EXAMINATION: VITAL SIGNS: Blood pressure is 189/92, heart rate 54, respiratory rate 16, temperature 98.1, pulse o x 97%. GENERAL: Noted to be awake, alert, comfortable, not in distress. SKIN: Adequate turgor. HEENT: He has slightly pale conjunctivae and anicteric sclerae. NECK: No neck mass, no carotid bruits, no JVD. CHEST: No deformities. LUNGS: Clear breath sounds. No wheezing, no crackles. HEART: Normal sinus rhythm. No murmurs, no gallops, no rubs. ABDOMEN: Globular, soft, nontender, no masses. EXTREMITIES: No edema, no deformities. MEDICATIONS: Medications of 03/23/2018 was reviewed. LABORATORY DATA: Laboratories of 03/23/2018; white count 5, hemoglobin 8.6. Sodium 130, potassium 4 .8, chloride 115, carbon dioxide 14, BUN 52, creatinine 4.76, GFR 14 mL per minute, calcium 8.6. ASSESSMENT AND PLAN: 1. Anemia. Continuing weekly Epogen. 2. Chronic renal failure - stabilizing renal function. Creatinine improved to a most recent value o f 4.76. He is currently still at stage 5 chronic renal failure. Again, discussion with the dialysis was made. We will also give an option visit with this patient - we will get in touch with the dialy sis unit. Recheck base met and CBC in a.m. Agree with current management.
[2018-03-23 15:20] VITALS: BP 152/86; TEMP 97.5
--- NOTE | 2018-03-24 11:48 | EKG ---
Test Reason : HIGH K Blood Pressure : / mmHG Vent. Rate : 060 BPM Atrial Rate : 060 BPM P-R Int : 202 ms QRS Dur : 092 ms QT Int : 402 ms P-R-T Axes : 014 -30 -25 degrees QTc Int : 402 ms Normal sinus rhythm Left axis deviation Incomplete right bundle branch block Minimal voltage criteria for LVH, may be normal variant Anteroseptal infarct , age undetermined Abnormal ECG Confirmed by ROOPA DUGAN, NATHALIA ([id number]), photo editor ZULEIKA BELL ([id number]) on 03/24/2018 11:48:10 AM Referred By: Confirmed By:ANTHALIA BLAS MD
--- NOTE | 2018-03-26 09:42 | DIS ---
DATE OF ADMISSION: 03/20/2018 DATE OF DISCHARGE: 03/23/2018 ADMITTING DIAGNOSES: 1. Hyperkalemia. 2. Acute kidney injury. 3. Hypertension, uncontrolled. 4. Chronic kidney disease, stage 4. 5. Protein-calorie malnutrition, moderate. FINAL DIAGNOSES: 1. Hyperkalemia, corrected. 2. Acute kidney injury, improved. 3. Uncontrolled hypertension, improved. 4. Chronic kidney disease, stage 4. 5. Protein-calorie malnutrition. BRIEF SUMMARY OF HOSPITAL COURSE: Mr. Restrepo is an 82-year-old - Niue[place] male admitted because of hyperkalemia. The patient had potassium of more than 6.2. He was given management for hyperkalemia. He was also found to have acute kidney injury. He was given IV fluids. His creatinine was 5.5 on admission, came down to 4.7 with fluids; and his BUN came down from 61 to 52. Potassium came down from more than 6 to 4.8. The patient's blood pressure was uncontrolled and new medication, minoxidil was added and hydralazine dose was increased, after which his blood pressure was better controlled. The patient has been feeling well. In view of improvement, the patient was discharged. At the time of discharge, he was stable. Vital signs were stable. Lungs were clear. Heart sounds were regular. Abdomen was soft, nontender. Bowel sounds present. DISCHARGE MEDICATIONS: Include clonidine 0.2 b.i.d., nifedipine XL 90 mg daily , Coreg 12.5 b.i.d., Remeron 15 mg at bedtime, sodium bicarbonate 650 b.i.d., Lasix was discontinued, hydralazine 100 mg t.i.d., Imdur 30 mg daily, minoxidil 2.5 mg daily. FOLLOWUP: The patient will come for followup in [address] [facility]
== END 2018-03-23 15:31 | disposition home or self-care (01) | DRG 683 ==
LOC: ERS 17:31 → 2NO 21:03
PROVIDERS: ADMIT Internal Medicine; ATTEND Internal Medicine
DX: N17.9 Acute kidney failure, unspecified (principal); E44.0 Moderate protein-calorie malnutrition; Z68.1 Body mass index [BMI] 19.9 or less, adult; I16.1 Hypertensive emergency; E87.5 Hyperkalemia; N18.5 Chronic kidney disease, stage 5; I12.9 Hypertensive chronic kidney disease with stage 1 through stage 4 chronic kidney disease, or unspecified chronic kidney disease; E86.0 Dehydration; D63.1 Anemia in chronic kidney disease; E83.52 Hypercalcemia
CPT/HCPCS: 36415; 36416; 71045; 80048; 80053; 82550; 82553; 83690; 83880; 84484; 85025; 85610; 85730; 93005; 96361; 96374; 96375; A4216; J1815; Q4081

== ENCOUNTER 2018-04-20 07:26 | Inpatient (IN) | payer MEDICARE ==
--- NOTE | 2018-04-20 07:37 | HP ---
HISTORY OF PRESENT ILLNESS: Varun Restrepo is an 82-year-old thin black male, 144 pounds, 5 foot 8 inches, followed by Dr. Gonzalez in [place], referred by Dr. Nick. 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 He has moved to live with his family in [place] and since he has received most of his care in the [facility], he wishes to continue care here. He has not yet started dialysis. Darlene at [facility] on [address] has been educating him on peritoneal dialysis. The patient is ri ght handed. He has superior right upper arm cephalic vein. He has not had previous abdominal operat ions. There are no evident hernias. Plan is for laparoscopic peritoneal dialysis catheter and a rig ht arm fistula under general anesthesia as an outpatient. He will make postoperative appointment to see dialysis center in [place] to continue peritoneal dialysis training, and they will assume his care l ocally since he is moving to the area to live with his family. His family accompanies him today. MEDICATIONS: Isosorbide mononitrate one a day, mirtazapine 15 mg a day, carvedilol 12.5 mg a day, la ctulose daily, hydralazine should be 100 mg t.i.d., clonidine 0.2 mg b.i.d., sodium bicarbonate 650 b .i.d., nifedipine 90 mg p.o. daily, nifedipine XL, Remeron 15 mg at bedtime, minoxidil 2.5 mg daily, Imdur ER 30 mg daily, Procrit 7500 q.7 days, carvedilol 12.5 mg b.i.d. with meals. ALLERGIES: CODEINE GI upset. TOBACCO: None. ALCOHOL: None. PAST SURGICAL HISTORY: Noncontributory. PAST MEDICAL HISTORY: Hypertension, chronic kidney disease nearing the need for dialysis. REVIEW OF SYSTEMS: [place] point noncontributory. FAMILY HISTORY: Noncontributory except for hypertension. PHYSICAL EXAMINATION: VITAL SIGNS: Weight 144 pounds, height 5 foot 8 inches, blood pressure 164/96, heart rate 83, temper ature 97.9 degrees. HEENT: Unremarkable. LUNGS: Clear to auscultation. CARDIAC: Regular rate and rhythm without murmur or gallop. ABDOMEN: Soft, nontender, no masses. No hernias, umbilical or groin. LABORATORY DATA: On 04/05/2018, white count 5, hemoglobin 8.3, platelet count 225,000. PT/INR blair l. Sodium 136, potassium 5.8, carbon dioxide 19, creatinine 6.1, GFR 11. ASSESSMENT AND PLAN: 1. End-stage renal disease in need of dialysis access. We will plan laparoscopic video placement of peritoneal dialysis catheter and right arm fistula under general anesthesia. He understands risks a nd benefits and consents. 2. Hypertension. 3. Not yet having started dialysis. Note, CT scan of abdomen and pelvis on 03/02/2018, no significant findings, spinal stenosis L3-4. La boratories on 04/12/2018, sodium 135, potassium 3.8, BUN 58, creatinine 6.33, GFR 11.
[2018-04-20] MEDS ORDERED: CEFAZOLIN/Water 2 GM/20 ML SYRINGE ONE (08:30)
[2018-04-20 10:05] LABS: Anion Gap 16 mmol/L (10-20); BUN (Urea Nitrogen) 54 mg/dL (8.4-25.7); Calc. Creatinine Clearance 8 mL/min (70-130); Carbon Dioxide 14 mmol/L (23-31); Chloride 109 mmol/L (98-107); Estimated GFR-MDRD 10; Glucose 68 mg/dL (83-110); Potassium 6.1 mmol/L (3.5-5.1); Sodium 133 mmol/L (136-145)
[2018-04-20] MEDS ORDERED: Heparin 1,000 UNITS/ML VIAL ONE (11:11)
[2018-04-20] MEDS ORDERED: Heparin 10,000 UNITS/1 ML VIAL ONE (12:47)
[2018-04-20] MEDS ORDERED: Sodium Chloride 0.9% 10 ML ONE (12:47)
[2018-04-20] MEDS ORDERED: Lidocaine 2% 10 ML INJ ONE (12:47)
[2018-04-20] MEDS ORDERED: Bupivacaine HCl 0.5%/Epinephrine 1:200,000/PF 30 ml Vial ONE (12:47)
[2018-04-20] MEDS ORDERED: Midazolam HCl 2 mg/2 ml Vial ONE (12:50)
[2018-04-20] MEDS ORDERED: Fentanyl 100 MCG/2 ML VIAL ONE (12:50)
[2018-04-20] MEDS ORDERED: Ondansetron HCl/PF 4 MG/2 ML Vial IVP PRN (13:38)
[2018-04-20] MEDS ORDERED: Dextrose 5% in Water 1,000 ML IV PRN (13:38)
[2018-04-20] MEDS ORDERED: Dextrose 50% Abboject 50 ML SYRINGE SLOW IVP PRN (13:45)
[2018-04-20] MEDS ORDERED: CEFAZOLIN/Water 2 GM/20 ML SYRINGE SLOW IVP SCH (14:00)
--- NOTE | 2018-04-20 15:46 | RAD ---
PORTABLE CHEST 1 VIEW: Date: 04/20/18 Time: 1307 hours HISTORY: Dialysis catheter placement. FINDINGS/IMPRESSION: Comparison made with exam of 03/20/18. There has been interval placement of a right internal jugular dialysis catheter with tip in the proje ction of the SVC. No pneumothorax is seen. The heart is enlarged. There is blunting of the left costo phrenic angle with increased density in the left lung base. POS: [facility]
[2018-04-20] MEDS: hydrALAZINE 25 MG TAB PO SCH ×2 (15:50→20:25)
--- NOTE | 2018-04-20 16:00 | OP ---
DATE OF PROCEDURE: 04/20/2018 PREOPERATIVE DIAGNOSES: End-stage renal disease, hyperkalemia 6.1, less uremic. POSTOPERATIVE DIAGNOSES: End-stage renal disease, hyperkalemia 6.1, less uremic. PROCEDURE: Right IJ cuffed tunnel hemodialysis catheter, ultrasound and fluoroscopy used. SURGEON: Baldo Sanchez M.D. ANESTHESIA: TIVA, local at 0.5% Marcaine with epinephrine 30 mL mixed with 2% Xylocaine 10 mL, 20 mL mixture used. INDICATIONS: The patient was scheduled for a laparoscopic peritoneal dialysis catheter and right arm fistula; however, he was hyperkalemic this morning and more lethargic and uremic and admitted [facility] for hemodialysis catheter for dialysis this weekend. Dr. Nikc will be seeing him. We will plan lap aroscopic peritoneal dialysis catheter and hemodialysis catheter next Monday. PROCEDURE IN DETAIL: The patient was taken to the operating room where under intravenous sedation, n hosea and chest prepped with ChloraPrep, draped in routine fashion. Local anesthetic infiltrated into the skin and subcutaneous tissue about the operative site. Ultrasound guidance used to cannulate the right internal jugular vein with trocar catheter. J-wire threaded. Trocar catheter removed. Skin incised and enlarged sharply at the J-wire entrance site and over the right chest. Using the tunneli ng device, the pre-curved angiodynamics cuffed tunnel hemodialysis catheter tunneled between the two incisions, placing the fabric cuff just beneath the skin exit site and catheter secured with 2 interr upted sutures of 3-0 nylon and Dermabond. Sterile dressing applied along with Biopatch. Smaller and medium sized dilators placed over the J-wire into the internal jugular vein removed. Dilator and pu ll-away sheath placed over the J-wire into the superior vena cava and dilator and J-wire removed. Ca theter placed with pull-away sheath. Pull-away sheath removed. Platysma approximated with 4-0 Monoc ryl, skin with subdermal 4-0 Monocryl and DermaGlue and sterile dressing applied. Fluoroscopic image s revealed good line placement. Each port aspirated blood and flushed with injectable saline and hep arinized saline solution 1000 units heparin per mL indicated volume of the port. Plan is for him to have dialysis this weekend in the hospital under the direction of Dr. Nick. Next w [facility], we will plan on laparoscopic peritoneal dialysis catheter and right arm fistula. We will obtain ultrasound vein mapping of both arms in preparation for his fistula. Avoid IV access above his wris t.
--- NOTE | 2018-04-20 17:18 | ULT ---
UPPER EXTREMITY VENOUS ULTRASOUND MAPPING: Date: 04/20/18 HISTORY: End-stage renal disease. COMPARISON: None. TECHNIQUE: Moore scale, color flow, Doppler imaging, and spectral waveform analysis performed of the left and rig ht lower extremity venous system. FINDINGS\IMPRESSION: RIGHT UPPER EXTREMITY BRACHIAL ARTERY: 2.4 mm RADIAL ARTERY: 3.9 mm ULNAR ARTERY: 5.6 mm CEPHALIC VEIN Proximal Humerus: 1.0 mm Mid Humerus: 1.0 mm Distal Humerus: 0.9 mm Antecubital Fossa: 1.0 mm Proximal Forearm: Not compressible Mid Forearm: 1.2 mm Distal Forearm: 1.3 mm BASILIC VEIN Proximal Humerus: 2.4 mm Mid Humerus: Not compressible Distal Humerus: Not compressible Antecubital Fossa: Not compressible Proximal Forearm: 1.8 mm Mid Forearm: Not compressible Distal Forearm: Not seen LEFT UPPER EXTREMITY BRACHIAL ARTERY: 5.5 mm RADIAL ARTERY: 4.3 mm ULNAR ARTERY: 1.5 mm CEPHALIC VEIN Proximal Humerus: 1.3 mm Mid Humerus: 1.1 mm Distal Humerus: 0.7 mm Antecubital Fossa: 1.4 mm Proximal Forearm: 1.0 mm Mid Forearm: 0.7 mm Distal Forearm: 0.7 mm BASILIC VEIN Proximal Humerus: 6.2 mm Mid Humerus: 3.6 mm Distal Humerus: 2.4 mm Antecubital Fossa: 2.2 mm Proximal Forearm: 1.9 mm Mid Forearm: Not seen Distal Forearm: Not seen Beesw[employer] Bleacher reports nonocclusive thrombus in the left subclavian vein in its proximal to mid portion. There is extensive edema in the left upper extremity at the level of the elbow. Overall, there is sl uggish flow in the visualized left and right upper extremity venous system. POS: [facility]
[2018-04-20] MEDS: Carvedilol 6.25 MG TAB PO SCH (18:37)
[2018-04-20] MEDS: Sodium Bicarbonate Tab 325 MG TAB PO SCH ×2 (20:26→21:19)
[2018-04-20] MEDS: cloNIDine 0.2 MG TAB PO SCH (20:26)
[2018-04-20] MEDS: Famotidine 20 MG TAB PO SCH (20:27)
[2018-04-20] MEDS: Mirtazapine 15 MG TAB PO SCH (20:27)
[2018-04-20] MEDS: hydrALAZINE 20 MG/ML VIAL SLOW IVP PRN (23:49)
[2018-04-21] MEDS: hydrALAZINE 20 MG/ML VIAL SLOW IVP PRN (04:06)
[2018-04-21 04:49] VITALS: BMI 21.7
[2018-04-21] MEDS ORDERED: Epoetin (ESRD) 20,000 UNITS/ML SC SCH (09:30)
[2018-04-21] MEDS ORDERED: Heparin 1,000 UNITS/ML VIAL ONE (11:11)
--- NOTE | 2018-04-21 11:32 | CON ---
DATE OF CONSULTATION: 04/21/2018 RENAL MEDICINE HISTORY OF PRESENT ILLNESS: Mr. Restrepo is an 82-year-old black male who was to undergo peritoneal dialysis catheter placement. However, it was fine to be hyperkalemic as well and volume overload. F or this reason, the PD catheter placement was placed on hold. We are consulted for initiating hemodi alysis with this patient. He underwent a 1 hour hemodialysis yesterday without any difficulty. Toda y, he is undergoing 2-hour hemodialysis. He has no new complaints. His shortness of breath is stabl e. REVIEW OF SYSTEMS: No chest pain. Positive for generalized malaise. Occasional nausea, but no vomi ting, no diarrhea. Appetite is fair. Energy level is fair. No headache, no abdominal pain, no sync opal episode, no gross hematuria, no dysuria, no urinary frequency, no abdominal pain, no sore throat , no diplopia. MEDICATIONS: Coreg 12.5 mg b.i.d., Catapres 0.2 mg p.o. b.i.d., Pepcid 20 mg p.o. b.i.d., hydralazin e 100 mg p.o. t.i.d., Imdur ER 30 mg once a day, lactulose 10 grams t.i.d., minoxidil 2.5 mg once a d ay, mirtazapine 15 mg at bedtime and sodium bicarbonate 650 mg p.o. b.i.d. PAST MEDICAL HISTORY: 1. Chronic renal failure secondary to presumed hypertensive nephropathy. 2. Longstanding hypertension. 3. Hyperlipidemia. 4. History of rectal bleeding 5. History of gastric ulcers. 6. DJD. PAST SURGICAL HISTORY: Status post upper and lower GI endoscopy recently status post cuffed dialysis catheter placement. SOCIAL HISTORY: The patient lives in [place], , five children. Currently, he lives with his d shayehter in [place]. Education 2nd grade. 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 No IV drug abuse. Sedentary lifestyle. FAMILY HISTORY: No family history of ESRD. ALLERGIES: CODEINE. TRAUMA: None. IMMUNIZATIONS: Up to date. HOSPITALIZATIONS: Please see past medical history. PHYSICAL EXAMINATION: VITAL SIGNS: Blood pressure 184/95, heart rate 56, respiratory rate 14, temperature 98.1. GENERAL: Awake, alert, comfortable, not in distress. SKIN: Adequate turgor. HEENT: Slightly pale conjunctivae, anicteric sclerae. NECK: No neck mass, no carotid bruits, no JVD. CHEST: No deformities. LUNGS: Clear breath sounds, no wheezing, no crackles. HEART: Normal sinus rhythm. No murmur, no gallops or rubs. ABDOMEN: Globular, soft, nontender. No masses. EXTREMITIES: No edema. LABORATORY DATA: Laboratories of 04/05/2018; hemoglobin 8.3. On 04/20/2018; sodium 133, potassium 6 .1, chloride 109, carbon dioxide 14, BUN 54, creatinine 6.56, calcium 9.0. ASSESSMENT AND PLAN: 1. Chronic renal failure - patient had hyperkalemia and some degree of volume overload. For this re ason, hemodialysis was initiated. He will have a PD catheter placed this coming Monday, which is 2 d ays from today. He will be then trained in 1 week after PD placement in doing peritoneal dialysis. 2. Anemia. We will be restarting patient's Epogen 7,500 units subcutaneously every week. 3. Hyperkalemia. Hemodialysis initiated. 4. Congestive heart failure, hemodialysis with fluid removal has been done. Please note, we will be seeing the sodium bicarbonate. 5. Hypertension. Adjust blood pressure meds.
[2018-04-21] MEDS: cloNIDine 0.2 MG TAB PO SCH ×2 (11:37→22:16)
[2018-04-21] MEDS: hydrALAZINE 25 MG TAB PO SCH ×3 (11:38→22:16)
[2018-04-21] MEDS: NIFEdipine XL 90 MG TAB PO SCH (11:38)
[2018-04-21] MEDS: Famotidine 20 MG TAB PO SCH ×2 (11:38→22:17)
[2018-04-21] MEDS: Carvedilol 6.25 MG TAB PO SCH ×2 (11:38→17:56)
[2018-04-21] MEDS: Minoxidil 2.5 MG TAB PO SCH (11:39)
[2018-04-21] MEDS: Sodium Bicarbonate Tab 325 MG TAB PO SCH ×2 (12:15)
--- NOTE | 2018-04-21 18:37 | PRG ---
DATE OF SERVICE: 04/21/2018 SUBJECTIVE: Mr. Restrepo is much more alert today after undergoing dialysis yesterday and today. OBJECTIVE: VITAL SIGNS: Temperature 97.4 degrees, 60, 132/74. LUNGS: Clear to auscultation. CARDIAC: Regular rate and rhythm without murmur or gallop. ABDOMEN: Soft, nontender. EXTREMITIES: Unremarkable. LABORATORY DATA: Not checked. Ultrasound vein mapping, both arms obtained, reveals cephalic vein, r ight arm, noncompressible in the proximal forearm, upper arm 1 mm, 1 mm, 0.9 mm, basilic vein 2.4 mm proximally, noncompressible, mid arm, cephalic vein left arm, 1.3, 1.1, 0,7, 1.4 mm antecubital fossa . Basilic vein 6.2, 3.6, 2.4, 2.2, 1.9 mm. There is apparently nonocclusive thrombus in the left batista bclavian vein, its proximal and midportion, sluggish flow, edema in the left arm. ASSESSMENT AND PLAN: The patient is doing well. PLAN: Laparoscopic peritoneal dialysis catheter and exploration of the right arm for primary fistula , though unlikely based on vein mapping, I would not place a prosthetic graft. We will plan this Mon.
[2018-04-21] MEDS: Mirtazapine 15 MG TAB PO SCH (22:16)
[2018-04-22] MEDS: Carvedilol 6.25 MG TAB PO SCH ×2 (08:18→17:43)
[2018-04-22] MEDS: NIFEdipine XL 90 MG TAB PO SCH (08:18)
[2018-04-22] MEDS: hydrALAZINE 25 MG TAB PO SCH ×3 (08:18→21:36)
[2018-04-22] MEDS: cloNIDine 0.2 MG TAB PO SCH ×2 (08:19→21:37)
[2018-04-22] MEDS: Famotidine 20 MG TAB PO SCH (08:19)
[2018-04-22] MEDS: Minoxidil 2.5 MG TAB PO SCH (08:19)
--- NOTE | 2018-04-22 11:06 | PRG ---
DATE OF SERVICE: 04/22/2018 SERVICE: Renal Medicine. SUBJECTIVE: Mr. Restrepo is an 82-year-old black male with chronic renal failure and has been initia yosef on dialysis due to volume overload and due to his hyperkalemia. He underwent hemodialysis on Mon and Monday. He is planned to have a PD catheter placed this coming Monday. No complaints toda y, no chest pain or shortness of breath. PHYSICAL EXAMINATION: VITAL SIGNS: Blood pressure is 138/76, heart rate 67, respiratory rate 16, temperature 98.4, pulse o x 99% on room air. GENERAL: Noted to be awake, alert, comfortable, not in distress SKIN: Adequate turgor. HEENT: Slightly pale conjunctivae, anicteric sclerae. NECK: No neck mass, no carotid bruits. No JVD. CHEST: No deformities. LUNGS: Clear breath sounds. No wheezing, no crackles. HEART: Normal sinus rhythm. No murmur, no gallops or rubs. ABDOMEN: Globular, soft, nontender, no masses. EXTREMITIES: No edema, no deformities. Positive for right IJ dialysis catheter. MEDICATIONS: Of 04/22/2018 was reviewed. LABORATORY DATA: Of 04/22/2018, PTH is noted to be at 533. ASSESSMENT AND PLAN: 1. Anemia - currently on weekly Epogen 7500 units subcu daily. 2. Secondary hyperparathyroidism, start calcitriol 0.25 mcg tab daily. 3. Chronic renal failure - hemodialysis has been initiated. A planned PD catheter will be placed. Eventually, we will convert him to peritoneal dialysis per his request. Overall, prognosis remains g uarded. Recheck base met and CBC in a.m.
--- NOTE | 2018-04-22 16:00 | PRG ---
DATE OF SERVICE: 04/22/2018 SUBJECTIVE: Mr. Restrepo is doing well today. He is tolerating his diet. He is alert. Plan is for a laparoscopic peritoneal dialysis catheter, right arm fistula tomorrow. Ultrasound vein banding re vealed partially occlusive thrombus left subclavian vein, left basilic vein. This accounts for mild edema left arm. OBJECTIVE: LUNGS: Clear to auscultation. CARDIAC: Regular rate and rhythm without murmur or gallop. ABDOMEN: Soft, nontender. ASSESSMENT AND PLAN: End-stage renal disease. Laparoscopic peritoneal dialysis catheter and right a rm fistula, possibly tomorrow. Arrange outpatient dialysis. Discharged home with outpatient dialysi s. Arrangements are made.
[2018-04-22] MEDS: Mirtazapine 15 MG TAB PO SCH (21:37)
[2018-04-23 05:32] LABS: #Eosinphils 0.2 thou/uL (0.0-0.7); #Monocytes 0.6 thou/uL (0.11-0.59); #Neutrophils 2.8 thou/uL (1.40-6.50); %Basophils 0.5 % (0.0-1.0); %Eosinophils 3.6 % (0.0-10.0); %Lymphocytes 21.4 % (21.0-51.0); %Neutrophils 62.4 % (42.0-75.0); Hemoglobin 6.7 g/dL (14.0-18.0); Mean Corpuscular HGB CONC 32.8 g/dL (32.0-36.0); Mean Corpuscular Hemoglobin 28.8 pg (27.0-31.0); Mean Corpuscular Volume 87.7 fL (78.0-98.0); Mean Platelet Volume 6.7 fL (7.4-10.4); Platelet Count 157 thou/uL (130-400); RBC Distribution Width 14.7 % (11.5-14.5); Red Blood Cell (RBC) Count 2.32 mill/uL (4.70-6.10); White Blood Cell (WBC) Count 4.6 thou/uL (4.8-10.8)
[2018-04-23 05:58] LABS: Anion Gap 14 mmol/L (10-20); BUN (Urea Nitrogen) 29 mg/dL (8.4-25.7); Calc. Creatinine Clearance 11 mL/min (70-130); Calcium 8.4 mg/dL (7.8-10.44); Carbon Dioxide 20 mmol/L (23-31); Chloride 106 mmol/L (98-107); Estimated GFR-MDRD 14; Glucose 75 mg/dL (83-110); Sodium 135 mmol/L (136-145)
[2018-04-23] MEDS ORDERED: Bupivacaine HCl 0.5%/Epinephrine 1:200,000/PF 30 ml Vial ONE (06:58)
[2018-04-23] MEDS ORDERED: PROPOFOL 200 MG/20 ML VIAL ONE (07:05)
[2018-04-23] MEDS ORDERED: Glycopyrrolate 0.2 MG/ML 5 ML SYRINGE ONE (07:05)
[2018-04-23] MEDS ORDERED: Heparin 10,000 UNITS/ 10 ML VIAL ONE (07:05)
--- NOTE | 2018-04-23 09:11 | PRG ---
DATE OF SERVICE: 04/23/2018 SUBJECTIVE: Mr. Restrepo is an 82-year-old black man with chronic renal failure/acute kidney injury. He has been initiated on dialysis due to volume overload and hyperkalemia. He is currently undergoi ng hemodialysis today. I am at the bedside supervising his dialysis. The son went to the dialysis u [facility] and would like to go to [place] for his outpatient hemodialysis. They are no longer interested in p eritoneal dialysis. We will notify the surgeon. The patient is currently tolerating current hemodialysis. PHYSICAL EXAMINATION: VITAL SIGNS: Blood pressure 160/85, heart rate 64, respiratory rate 18, temperature 98.8. GENERAL: Awake, alert, comfortable, not in distress SKIN: Adequate turgor. HEENT: He has pale conjunctivae, anicteric sclerae. NECK: No neck mass, no carotid bruits, no JVD. CHEST: No deformities. LUNGS: Clear breath sounds. HEART: Normal sinus rhythm. No murmur, no gallops or rubs. ABDOMEN: Globular, soft, nontender. No masses. EXTREMITIES: No edema, no deformities. MEDICATIONS: 04/23/2018 - Reviewed. LABORATORY DATA: 04/23/2018 - White count 4.6, hemoglobin 6.7, sodium 135, potassium 5, chloride 106 , carbon dioxide 20, BUN 29, creatinine 4.82, calcium 8.4. PTH is 533.9. ASSESSMENT AND PLAN: 1. Anemia - continue weekly Epogen 1 unit packed RBC with dialysis. Recheck CBC tomorrow. 2. Secondary hyperparathyroidism. Calcitriol has been initiated. 3. End-stage renal disease/chronic renal failure - currently on hemodialysis regimen Monday, , Monday. Fluid removal as tolerated. A planned AV fistula is being made. The patient no longer interested in pursuing peritoneal dialysis - per his son's request. We will recheck base met and CBC in a.m.
[2018-04-23] MEDS: Calcitriol 0.25 MCG CAP PO SCH (10:10)
[2018-04-23] MEDS: cloNIDine 0.2 MG TAB PO SCH ×2 (10:10→21:11)
[2018-04-23] MEDS: Carvedilol 6.25 MG TAB PO SCH ×2 (10:10→16:31)
[2018-04-23] MEDS: Famotidine 20 MG TAB PO SCH (10:11)
[2018-04-23] MEDS: hydrALAZINE 25 MG TAB PO SCH ×3 (10:11→21:11)
[2018-04-23] MEDS: Minoxidil 2.5 MG TAB PO SCH (10:12)
[2018-04-23] MEDS: NIFEdipine XL 90 MG TAB PO SCH (10:13)
[2018-04-23] MEDS ORDERED: Midazolam HCl 2 mg/2 ml Vial ONE (10:36)
[2018-04-23] MEDS ORDERED: Fentanyl 100 MCG/2 ML VIAL ONE (10:36)
[2018-04-23] MEDS ORDERED: Bupivacaine/Epinephrine 0.25% 30 ML VIAL ONE (10:45)
[2018-04-23] MEDS ORDERED: Lidocaine 2% 10 ML INJ ONE (10:45)
[2018-04-23] MEDS ORDERED: Protamine Sulfate 50 MG/5 ML VIAL ONE (10:45)
[2018-04-23] MEDS ORDERED: Heparin 5,000 UNITS/ML VIAL ONE (10:45)
[2018-04-23] MEDS ORDERED: Promethazine HCl 25 MG/ML VIAL IM PRN (13:32)
[2018-04-23] MEDS ORDERED: Ondansetron HCl/PF 4 MG/2 ML Vial IVP PRN (13:32)
[2018-04-23] MEDS ORDERED: Promethazine HCl 25 MG/ML VIAL SLOW IVP PRN (13:32)
[2018-04-23] MEDS ORDERED: PROPOFOL 20 ML ONE (13:57)
--- NOTE | 2018-04-23 16:56 | OP ---
DATE OF PROCEDURE: 04/23/2018 PREOPERATIVE DIAGNOSES: End-stage renal disease as the patient has changed his mind and does not wan t peritoneal dialysis right arm fistula. Left upper arm previous PICC line in a patient with c hronic kidney disease resulting in thrombus in the basilic vein and nonocclusive thrombus subclavian vein. POSTOPERATIVE DIAGNOSES: End-stage renal disease as the patient has changed his mind and does not wa nt peritoneal dialysis right arm fistula. Left upper arm previous PICC line in a patient with chronic kidney disease resulting in thrombus in the basilic vein and nonocclusive thrombus subclavian vein. PROCEDURE: Right arm primary fistula. Exploration of cephalic vein at the wrist, finding it inadequ ate from previous IV access. Primary fistula, proximal volar forearm, inflow proximal radial artery, outflow cephalic vein upper arm primarily. Communication of the basilic vein present, but anatomica lly not adequate. SURGEON: Dr. Baldo Sanchez. ANESTHESIA: Regional TIVA. DESCRIPTION OF PROCEDURE: The patient was taken to the operating room where under regional anesthesi a, right upper extremity was prepped with ChloraPrep and draped in routine fashion. Local anesthetic was not required. Incision was made in the proximal volar forearm, carried down through skin and batista bcutaneous tissue longitudinally below the antecubital fossa, identifying the antecubital vein dissec ting free. The antecubital vein towards the wrist seemed to be of good size. Thus incision made in the wrist and this vein explored, but once it was ligated on the hand side and spatulated and interro gated with coronary dilators, coronary dilator passed, 2.5 mm would not pass. There was obstruction fibrosis from previous IV access. This was clipped and wound closed and approximated with subcutaneo us tissue, 3-0 Vicryl, skin with subdermal 4-0 Monocryl and DermaGlue applied. Attention was then turned towards the proximal volar forearm or the antecubital vein dissected free a nd on the hand side ligated with a 3-0 silk suture, spatulated interrogated with coronary dilators, p assing coronary dilators from a 2 mm to a 4 mm coronary dilator out the cephalic vein outflow. Proxi mal radial artery dissected free and was on excellent caliber. The patient was given 6000 units of h eparin intravenously. After adequate circulation time, the brachial artery, ulnar artery, and distal proximal radial artery clamped with vascular clamps. Branches clamped with vascular clamps. Longit udinal arteriotomy made sharply and elongated with Ramirez scissors and the proximal radial artery. Ve in spatulated and end vein to side proximal artery anastomosis created with continuous suture of 6-0 Prolene. After completing the anastomosis, hemostasis gained with 6-0 Prolene, releasing vascular co ntrol noting good Doppler signal cephalic vein outflow upper arm. As noted above, communication of b asilic vein present, but was distally and probably because of valvular structures would not communica te. These were left intact; however. Good hemostasis obtained with 6-0 Prolene. Patient given prot amine 25 mg intravenously by Anesthesia. Surgicel applied. Patient tolerated the procedure well. Holly gonzalez's preoperative hemoglobin was 6.7. He was given 1 unit of blood.
[2018-04-23] MEDS: hydrALAZINE 20 MG/ML VIAL SLOW IVP PRN (17:09)
[2018-04-23] MEDS: Mirtazapine 15 MG TAB PO SCH (21:11)
[2018-04-24] MEDS: Acetaminophen 500 MG TAB PO PRN ×2 (00:40→11:00)
[2018-04-24 05:56] LABS: #Basophils 0.1 thou/uL (0.0-0.2); #Eosinphils 0.2 thou/uL (0.0-0.7); #Lymphocytes 0.9 thou/uL (1.20-3.40); #Monocytes 0.6 thou/uL (0.11-0.59); #Neutrophils 2.7 thou/uL (1.40-6.50); %Basophils 1.2 % (0.0-1.0); %Eosinophils 3.5 % (0.0-10.0); %Lymphocytes 20.8 % (21.0-51.0); %Monocytes 12.5 % (0.0-10.0); %Neutrophils 62.1 % (42.0-75.0); Hemoglobin 7.9 g/dL (14.0-18.0); Mean Corpuscular HGB CONC 33.3 g/dL (32.0-36.0); Mean Corpuscular Hemoglobin 29.3 pg (27.0-31.0); Platelet Count 139 thou/uL (130-400); RBC Distribution Width 14.4 % (11.5-14.5); White Blood Cell (WBC) Count 4.4 thou/uL (4.8-10.8)
[2018-04-24 06:18] LABS: Anion Gap 14 mmol/L (10-20); BUN (Urea Nitrogen) 19 mg/dL (8.4-25.7); Calc. Creatinine Clearance 14 mL/min (70-130); Calcium 8.1 mg/dL (7.8-10.44); Carbon Dioxide 22 mmol/L (23-31); Chloride 104 mmol/L (98-107); Estimated GFR-MDRD 19; Glucose 76 mg/dL (83-110); Potassium 4.8 mmol/L (3.5-5.1); Sodium 135 mmol/L (136-145)
[2018-04-24] MEDS: Minoxidil 2.5 MG TAB PO SCH (07:56)
[2018-04-24] MEDS: NIFEdipine XL 90 MG TAB PO SCH (07:56)
[2018-04-24] MEDS: Calcitriol 0.25 MCG CAP PO SCH (07:56)
[2018-04-24] MEDS: hydrALAZINE 25 MG TAB PO SCH ×3 (07:57→21:25)
[2018-04-24] MEDS: Carvedilol 6.25 MG TAB PO SCH ×2 (07:57→17:05)
[2018-04-24] MEDS: cloNIDine 0.2 MG TAB PO SCH ×2 (07:58→21:25)
[2018-04-24] MEDS: Famotidine 20 MG TAB PO SCH (07:58)
--- NOTE | 2018-04-24 15:23 | PRG ---
DATE OF SERVICE: 04/24/2018 SUBJECTIVE: Varun Restrepo is doing well today. He has good thrill and bruit in his right arm fis huong. Hemodialysis catheter is working well. OBJECTIVE: LUNGS: Clear to auscultation. CARDIAC: Regular rate and rhythm without murmur, rub, or gallop. ABDOMEN: Soft, nontender. The patient is doing well. PLAN: Discharge home once outpatient dialysis is arranged.
[2018-04-24 16:19] LABS: HBSAg Index 0.17 S/CO (0-0.99); Hep B Surf Ag Non-Reactive S/CO (NonReactive)
[2018-04-24 16:20] LABS: Hep C IgG Ab Non-Reactive (NonReactive); Hep C Index 0.08 S/CO (0-0.79)
[2018-04-24 16:21] LABS: Hep A IgM AB Non-Reactive (NonReactive)
[2018-04-24 16:22] LABS: HBCM Index 0.07 S/CO (0-0.79); Hep A IgM S/CO 0.23 S/CO (0-0.79); Hepatitis B Core IGM Abs Non-Reactive (NonReactive)
[2018-04-24 16:39] LABS: HBSAB Concentration 102.95 mIU/mL; Hep B Core Total Index 5.47 S/CO (0-0.79); Hep B Surf AB Reactive (NonReactive)
[2018-04-24 16:40] LABS: Hep B Core Total Ab Reactive (NonReactive)
[2018-04-24] MEDS: Mirtazapine 15 MG TAB PO SCH (21:26)
--- NOTE | 2018-04-25 09:49 | PRG ---
DATE OF SERVICE: 04/25/2018 RENAL MEDICINE SUBJECTIVE: Mr. Restrepo is an 82-year-old black male with ESRD from hypertensive nephropathy and no w undergoing hemodialysis. He is tolerating said treatment. He had an AV fistula placed back on 02/2018. He has now opted not to do peritoneal dialysis. [facility] are now requesting to go to [place]. No other complaints, no chest pain or shortness of breath. PHYSICAL EXAMINATION: VITAL SIGNS: Blood pressure is 151/85, heart rate 58, respiratory rate 18, temperature 98.3, pulse o x 97%. GENERAL: He is awake, alert, comfortable, not in distress. SKIN: Adequate turgor. HEENT: Slightly pale conjunctivae, anicteric sclerae. NECK: No neck mass, no carotid bruits, no JVD. CHEST: No deformities. LUNGS: Clear breath sounds. HEART: Normal sinus rhythm. No murmurs, no gallops, no rubs. ABDOMEN: Globular, soft, nontender, no masses. EXTREMITIES: No edema, no deformities. LABORATORY DATA: Laboratories of 04/24/2018 reviewed. MEDICATIONS: Medications of 04/25/2018 was reviewed. ASSESSMENT AND PLAN: 1. End-stage renal disease - I am at the bedside supervising his dialysis. Fluid removal as tolerat ed. We are awaiting outpatient hemodialysis placement. 2. Anemia, continuing weekly Epogen with this patient. Continue supportive care.
[2018-04-25] MEDS: hydrALAZINE 25 MG TAB PO SCH ×3 (12:51→21:10)
[2018-04-25] MEDS: NIFEdipine XL 90 MG TAB PO SCH (12:52)
[2018-04-25] MEDS: cloNIDine 0.2 MG TAB PO SCH ×2 (12:52→21:11)
[2018-04-25] MEDS: Calcitriol 0.25 MCG CAP PO SCH (12:52)
[2018-04-25] MEDS: Famotidine 20 MG TAB PO SCH (12:53)
[2018-04-25] MEDS: Carvedilol 6.25 MG TAB PO SCH ×2 (12:55→21:09)
[2018-04-25] MEDS: Minoxidil 2.5 MG TAB PO SCH (12:56)
--- NOTE | 2018-04-25 14:58 | PRG ---
DATE OF SERVICE: 04/25/2018 SUBJECTIVE: Varun Restrepo is doing well today. OBJECTIVE: VITAL SIGNS: 171/93, 98.3 degrees. LUNGS: Clear to auscultation. CARDIAC: Regular rate and rhythm without murmur or gallop. ABDOMEN: Soft, nontender, good thrill and bruit, right upper arm fistula cephalic vein. Hemodialysi s catheter in place, working well for dialysis. Patient is slightly weak. Outpatient hemodialysis a rrangements are being made. Laboratories not checked today. LUNGS: Clear to auscultation. CARDIAC: Regular rate and rhythm without murmur or gallop. ABDOMEN: Soft, nontender. ASSESSMENT AND PLAN: End-stage renal disease. The patient will be discharged home with outpatient d ialysis arrangements are made. This hopefully will be available tomorrow.
[2018-04-25] MEDS: Mirtazapine 15 MG TAB PO SCH (21:11)
[2018-04-26] MEDS: Carvedilol 6.25 MG TAB PO SCH ×3 (00:50→17:39)
[2018-04-26] MEDS: NIFEdipine XL 90 MG TAB PO SCH (08:29)
[2018-04-26] MEDS: Calcitriol 0.25 MCG CAP PO SCH (08:29)
[2018-04-26] MEDS: cloNIDine 0.2 MG TAB PO SCH ×2 (08:29→20:45)
[2018-04-26] MEDS: Famotidine 20 MG TAB PO SCH (08:30)
[2018-04-26] MEDS: Minoxidil 2.5 MG TAB PO SCH (08:30)
[2018-04-26] MEDS: hydrALAZINE 25 MG TAB PO SCH ×2 (16:17→20:44)
--- NOTE | 2018-04-26 18:22 | PRG ---
DATE OF SERVICE: 04/26/2018 SUBJECTIVE: Mr. Restrepo is doing well. He has no complaints. He had dialysis yesterday. PHYSICAL EXAMINATION: VITAL SIGNS: His vital signs are stable. ABDOMEN: His abdomen is soft, nontender, nondistended. ASSESSMENT: Postop dialysis access placement with initiation of hemodialysis. PLAN: Continuing to work on setting him up in the outpatient dialysis center, until then continue in patient dialysis.
[2018-04-26] MEDS: Mirtazapine 15 MG TAB PO SCH (20:46)
[2018-04-26] MEDS: Ondansetron ODT 4 MG TAB PO PRN (22:14)
[2018-04-27] MEDS: Acetaminophen 500 MG TAB PO PRN (07:09)
[2018-04-27] MEDS: Ondansetron ODT 4 MG TAB PO PRN (07:09)
[2018-04-27] MEDS ORDERED: Heparin 10,000 UNITS/ 10 ML VIAL ONE (08:18)
--- NOTE | 2018-04-27 10:36 | PRG ---
DATE OF SERVICE: 04/27/2018 SUBJECTIVE: Mr. Restrepo is an 82-year-old black male with ESRD and currently undergoing dialysis. I am at the bedside supervising his dialysis. No new complaints. He has already an outpatient dialy sis placement in [place]. The patient voices no chest pain or shortness of breath. PHYSICAL EXAMINATION: VITAL SIGNS: Blood pressure is 167/88, heart rate 66, respiratory rate 16, temperature 98.6, pulse o x 95%. GENERAL: Awake, alert, supine, comfortable, not in distress. SKIN: Adequate turgor. HEENT: Slightly pale conjunctivae, anicteric sclerae. NECK: No neck mass, no carotid bruits, no JVD. CHEST: No deformities. LUNGS: Clear breath sounds, no wheezing, no crackles. HEART: Normal sinus rhythm. No murmur, no gallops or rubs. ABDOMEN: Globular, soft, nontender. No masses. EXTREMITIES: No edema, no deformities. MEDICATIONS: 04/27/2018 -- Reviewed. LABORATORY DATA: 04/24/2018 - Sodium 135, potassium 4.8, chloride 104, carbon dioxide 22, BUN 90, cr eatinine 3.79, glucose 76, calcium 8.1. White count 4.4, hemoglobin 7.9. ASSESSMENT AND PLAN: 1. End-stage renal disease - stable. Continue current hemodialysis regimen. Tolerating said treatbrenna ent. He has an outpatient dialysis placement. His next dialysis will be Monday. I think he can ti ed over until Monday. We are maxing out fluid removal. 2. Anemia, currently on weekly Epogen. Continue supportive care. Agree with current management.
[2018-04-27 13:37] VITALS: BP 147/80; TEMP 97.3
[2018-04-27] MEDS: Famotidine 20 MG TAB PO SCH (13:57)
[2018-04-27] MEDS: NIFEdipine XL 90 MG TAB PO SCH (13:57)
[2018-04-27] MEDS: hydrALAZINE 25 MG TAB PO SCH ×2 (13:57→13:58)
[2018-04-27] MEDS: Calcitriol 0.25 MCG CAP PO SCH (13:58)
[2018-04-27] MEDS: Minoxidil 2.5 MG TAB PO SCH (13:58)
[2018-04-27] MEDS: cloNIDine 0.2 MG TAB PO SCH (14:21)
[2018-04-27] MEDS: Carvedilol 6.25 MG TAB PO SCH (14:21)
[2018-04-27 14:24] LABS: Hep B Surface AG-Rflx Sendout Negative (Negative); Hepatitis B Core IgM AB Negative (Negative); Hepatitis B Core Total Positive (Negative); Hepatitis B Surface AB-Sendout Reactive (.)
== END 2018-04-27 14:55 | disposition home or self-care (01) | DRG 264 ==
LOC: SDC 07:26 → SURG A 13:38
PROVIDERS: ADMIT Specialist; ATTEND Specialist
PROC: 0JH60XZ Insertion of Tunneled Vascular Access Device into Chest Subcutaneous Tissue and Fascia, Open Approach (ICD-10-PCS; 2018-04-20)
PROC: 02HV33Z Insertion of Infusion Device into Superior Vena Cava, Percutaneous Approach (ICD-10-PCS; 2018-04-20)
PROC: B5181ZA Fluoroscopy of Superior Vena Cava using Low Osmolar Contrast, Guidance (ICD-10-PCS; 2018-04-20)
PROC: 5A1D70Z Performance of Urinary Filtration, Intermittent, Less than 6 Hours Per Day (ICD-10-PCS; 2018-04-20)
PROC: 031B0ZF Bypass Right Radial Artery to Lower Arm Vein, Open Approach (ICD-10-PCS; principal; 2018-04-23)
DX: I13.2 Hypertensive heart and chronic kidney disease with heart failure and with stage 5 chronic kidney disease, or end stage renal disease (principal); N18.6 End stage renal disease; N25.81 Secondary hyperparathyroidism of renal origin; I50.9 Heart failure, unspecified; E87.5 Hyperkalemia; D63.1 Anemia in chronic kidney disease; E78.00 Pure hypercholesterolemia, unspecified
CPT/HCPCS: 36415; 36416; 36430; 71045; 80048; 80074; 83970; 84100; 85025; 86704; 86705; 86706; 86707; 86850; 86900; 86901; 87340; 87350; 90935; 93970; A4216; C1752; C1769; G0257; G0365; G8978-GP-CJ; G8979-GP-CJ; G8980-GP-CJ; J0131; J0360; J0670; J1644; J2250; J2704; J2720; J3010; P9016; Q0162; Q4081